=== PATIENT | male | born 1970 | race African-American/Black ===

== ENCOUNTER 2018-05-26 02:31 | Inpatient (IN) ==
[~2018-05-26 02:31] MED LIST: ceFAZolin 2 GM Premix Inj 2 GM/50 ML PIGGYBACK IV.SIG ONE
[2018-05-26] MEDS ORDERED: Diphtheria/Tetanus/Pertussis Vaccine Inj 0.5 ML Syringe IM ONE (02:37)
[2018-05-26] MEDS ORDERED: ceFAZolin 2 GM IV; once IV.SIG ONE (03:00)
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
[2018-05-26 03:19] LABS: Activated Partial Thrombo Time 23.2 sec (23.4-31.7); INR 1.1 Ratio
[2018-05-26 03:20] LABS: Calcium 8.2 mg/dL (8.5-10.1); Carbon Dioxide 21.8 meq/L (21.0-32.0); Potassium 3.5 meq/L (3.5-5.1)
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
[2018-05-26] MEDS ORDERED: HYDROmorphone PF Inj 1 MG/ML Ampul ONE (03:32)
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
[2018-05-26 04:46] LABS: Baso # (Auto) 0.1 th/mm3 (0.0-0.2); Baso % (Auto) 0.3 % (0.0-2.0); Eos % (Auto) 0.2 % (0.0-4.0); Hematocrit 42.2 % (39.0-51.0); Hemoglobin 13.9 gm/dL (13.0-17.0); Lymph # (Auto) 2.1 th/mm3 (1.0-4.8); Lymph % (Auto) 11.4 % (9.0-44.0); Mean Corpuscular HGB Conc 32.9 % (32.0-36.0); Mean Corpuscular Hemoglobin 30.1 pg (27.0-34.0); Mean Corpuscular Volume 91.7 fL (80.0-100.0); Mean Platelet Volume 7.5 fL (7.0-11.0); Mono # (Auto) 1.8 th/mm3 (0.0-0.9); Mono % (Auto) 9.6 % (0.0-8.0); Neut # (Auto) 14.4 th/mm3 (1.8-7.7); Neut % (Auto) 78.5 % (16.0-70.0); Platelet Count 277 th/mm3 (150-450); Red Cell Distribution Width 14.1 % (11.6-17.2); White Blood Count 18.3 th/mm3 (4.0-11.0)
[2018-05-26 05:21] LABS: Eosinophils 1 % (0-4); Lymphocytes 15 % (9-44); Monocytes 12 % (0-8); Myelocytes 2 % (0-0)
[2018-05-26 05:22] LABS: Platelet Estimate Normal (Normal); Platelet Morphology Normal (Normal); Toxic Vacuolation Present
[2018-05-26] MEDS ORDERED: Potassium Chlor 20 mEq Premix 20 MEQ/100 ML PIGGYBACK IV.SIG PRN ×2 (06:52)
[2018-05-26] MEDS ORDERED: Potassium Chlor 40 mEq Premix 40 MEQ/100 ML PIGGYBACK IV.SIG PRN ×2 (06:52)
[2018-05-26] MEDS ORDERED: Potassium Chloride Liq 20 MEQ/15 ML UDC PO PRN ×2 (06:52)
[2018-05-26] MEDS ORDERED: Sodium Phosphate Inj 30 MMOL in Sodium Chlor 0.9% Inj 250 ML IV.SIG PRN (06:52)
[2018-05-26] MEDS ORDERED: Potassium Phosphate Inj 30 MMOL in Sodium Chlor 0.9% Inj 250 ML IV.SIG PRN (06:52)
[2018-05-26] MEDS ORDERED: Magnesium Oxide 400 MG Tablet PO PRN (06:52)
[2018-05-26] MEDS ORDERED: Magnesium Sulfate Inj 4 GM in Sodium Chlor 0.9% Inj 92 ML IV.SIG PRN (06:52)
[2018-05-26] MEDS ORDERED: Magnesium Sulfate Inj 2 GM in Sodium Chlor 0.9% Inj 96 ML IV.SIG PRN (06:52)
[2018-05-26] MEDS ORDERED: Potassium Phosphate 500 MG Soluble Tablet PO PRN ×2 (06:52)
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
[2018-05-26] MEDS ORDERED: Lidocaine PF 1% Inj 5 ML Syringe OTHER ONE (07:36)
[2018-05-26] MEDS ORDERED: Glycopyrrolate Inj 1 MG/5 ML Syringe IV.PUSH ONE (07:36)
[2018-05-26] MEDS ORDERED: Normosol-R pH 7.4 Inj 2,000 ML IV.CONT ONE (07:36)
[2018-05-26] MEDS ORDERED: Neostigmine Inj 5 MG/5 ML Syringe IV.PUSH ONE (07:36)
[2018-05-26] MEDS ORDERED: Ketorolac Inj 30 MG/ML (IVP) Vial IV.PUSH ONE (07:36)
[2018-05-26] MEDS ORDERED: Phenylephrine/NS 1000 MCG/10ML Syringe IV.PUSH ONE (07:36)
[2018-05-26] MEDS: Lidocaine 5% Patch T-DERMAL SCH (08:02)
[2018-05-26] MEDS: Methocarbamol 500 MG Tablet PO SCH ×3 (08:02→22:21)
[2018-05-26] MEDS: Pantoprazole Inj 40 MG Vial IV.PUSH SCH ×2 (08:02→11:56)
[2018-05-26] MEDS: Docusate Sodium 100 MG Capsule PO SCH ×2 (08:02→22:21)
[2018-05-26] MEDS: Sod Chloride 0.9% Inj 1,000 ML IV.CONT SCH (08:02)
[2018-05-26] MEDS ORDERED: Post-op Orders (for Pharmacy) OTHER STA (09:29)
--- NOTE | 2018-05-26 09:42 | P.OP ---
- Preoperative Diagnosis (1) Open fracture of right tibia and fibula (2) Laceration of left lower leg with foreign body (3) Bimalleolar fracture of right ankle Date of procedure: 05/26/18 Procedure: Irrigation and debridement of open right tibia fracture, irrigation debridement of open right fibula fracture, intramedullary nail fixation right tibia fracture , open reduction internal fixation bimalleolar right ankle fracture, stress exam of syndesmosis under anesthesia, application of wound VAC dressing, irrigation and debridement of left thigh complex laceration with closure of 10 cm laceration Anesthesia: GETA Surgeon: Leon Lange MD Assistant Chief Train Dispatcher: KARLY Cano PA-C The surgical procedure was assisted by my physician review assistant. My P.A. presence was necessary throughout this case for the manipulation and positioning of the surgical extremity. My P.A. was assisting me throughout the duration of this procedure. The skill set of a physician review assistant was medically necessary to complete this procedure. During the surgical case the rn surgical was working at the back table and the physician review assistant was directly assisting me. Operation and Findings: Implants: ITS [10]mm x [360]mm tibial nail Plan of activity: Nonweightbearing Patient was seen and examined preoperatively. He was found to have open right tibia and fibula fractures as well as complex laceration to left knee. An informed consent was obtained from patient after detailed discussion of risk and benefits. Risks of surgery include bleeding, infection, painful hardware, nonunion, malunion, leg length discrepancy, need for hardware removal, wound infection, and medical complications associated with anesthesia including blood clots, stroke, heart attack, and were discussed. Operative site was marked. Patient was brought to the operating room placed on or table. Patient received IV antibiotics and was given IV sedation GETA. Bilateral lower extremities were prepped with alcohol Hibiclens and draped in usual sterile fashion. Timeout procedure was performed Procedure began with attention turned towards the right tibia fracture. The tibia fracture was exposed through the traumatic laceration. An excisional debridement was performed. Curettes and rongeurs were used to debride soft tissue and bone. Areas of muscle and fascia were debrided with scalpel. Overall the wound was relatively clean. After completion of debridement, the wound was thoroughly irrigated with pulsatile lavage. Next attention was turned towards fixation of the right tibia fracture. The fracture was manually reduced. Traction was applied. Fracture was reduced. The fracture reduced and excellent alignment was achieved. Fracture clamp was used to aid in reduction. Next a 3 cm incision was made proximal to the patella. Quadriceps tendon was split in line with fibers. Cannulas were placed in the patellofemoral joint to protect the articular surface at all times. A guidepin was placed into the tibia and advanced in the tibial canal. Fluoroscopy was used to confirm appropriate guidepin placement. An opening reamer was used to open the tibial canal. A ball-tipped guidewire was advanced down the tibial canal. Guidepin was passed across the fracture site into the center of the distal tibia. Fluoroscopy confirmed guidepin placement. The nail length was now measured. The fracture was now held in a reduced position and the canal was reamed. The canal was reamed up to appropriate size. A 10 mm tibia nail was now selected. Next the nail was fully seated. Using perfect mil[place]acs technique 3 distal interlocking screws were placed. The nail was now back slapped to apply compression across the fracture site. Using the insertion handle as a guide 2 proximal interlocking screws were placed. Fluoroscopy confirmed excellent of fracture with well-placed hardware. Incisions and the knee joint were thoroughly irrigated with sterile saline. Next, attention was turned to the right fibula. There was a displaced distal fibular shaft fracture. There was a small laceration over the fibula. This wound was explored. The fibula fracture was found to be an open fracture as well. The traumatic laceration was extended proximally distally. The bone was exposed. An excisional debridement was performed. Curettes and rongeur were used to debride soft tissue and bone. The wound was now thoroughly irrigated with pulsatile lavage. Next this was turned towards excision of the fibula fracture. A 1 cm incision was made distal to the tip of the fibula. A 3.5 mm drill bit was placed in the tip of the fibula and advanced in a retrograde fashion up the fibular canal. A Harris rene pin was now selected of appropriate length. The fracture was held in reduced position. The Harris rene was placed up the intramedullary canal of the fibula across the fracture site. Fluoroscopy confirmed appropriate hardware placement. The fracture was next alignment. Next, attention was turned towards the medial malleolus. The medial malleolus fragment was minimally displaced. A small percutaneous incision was made distal to the medial malleolus. A guidepin for the cannulated screws was now placed in a retrograde fashion across the fracture site. Screw length was measured. Cannulated drill was placed over the guidepin. Appropriate length screw was now placed. Good compression was applied. The syndesmosis was now visualized under fluoroscopy. The syndesmosis was stressed. There was no widening of the syndesmosis was external rotation or eversion of the foot. At this point the traumatic lacerations of the right leg were closed with 3-0 PDS and 3-0 nylon. The skin over the traumatic laceration of the tibia fracture appeared to be viable. The skin did have significant traumatic injury. Decision was made to place a wound VAC dressing over the incision. The incision was covered with Xeroform. VAC dressing was now sealed appropriately. The incisions near the patella were closed with #1 Vicryl, 3-0 Vicryl, and dmitry. Next attention was turned towards the left leg. Patient had a 10 cm laceration over the posterior medial aspect of the left knee. The laceration was stellate in nature. There were a few small foreign bodies present. An excisional debridement was performed. Pulsatile lavage was used to thoroughly irrigate the wound. At this point attention was turned to wound closure. Subcutaneous tissue was reapproximated with 3-0 PDS. Skin was now closed with 3-0 nylon. A combination of vertical mattress, horizontal mattress, and retention sutures were utilized. The laceration was completely closed. Sterile dressings were now applied. The right leg was placed into a well molded splint. He was transferred to recovery room in stable condition.
[2018-05-26] MEDS ORDERED: ceFAZolin Inj 2,000 MG in Sodium Chlor 0.9% Inj 80 ML IV.SIG SCH (10:00)
--- NOTE | 2018-05-26 10:54 | P.PNOP ---
Subjective Interval history: POD 0 s/p I&D with IMN right tibia, ORIF right medial malleolus, ORIF right fibula, I&D wound closure left thigh stable in pacu Physical Exam Vital signs: Vital Signs 05/26/18 03:14 05/26/18 03:52 05/26/18 03:53 Temperature Pulse Rate 103 H Respiratory Rate 16 20 Blood Pressure 124/65 Pulse Oximetry 98 05/26/18 04:00 05/26/18 04:15 05/26/18 04:37 Temperature 98.6 F Pulse Rate 109 H 104 H Respiratory Rate 15 24 23 Blood Pressure 114/60 108/63 Pulse Oximetry 99 95 05/26/18 04:52 05/26/18 05:00 05/26/18 05:07 Temperature Pulse Rate 105 H 117 H 108 H Respiratory Rate 20 19 31 H Blood Pressure 105/62 105/62 110/62 Pulse Oximetry 98 98 05/26/18 05:22 05/26/18 05:52 05/26/18 06:00 Temperature Pulse Rate 102 H 102 H Respiratory Rate 15 23 Blood Pressure 113/64 111/66 Pulse Oximetry 100 98 99 05/26/18 07:15 Temperature Pulse Rate 106 H Respiratory Rate 16 Blood Pressure 111/63 Pulse Oximetry 97 Intake & Output 05/25/18 05/26/18 05/26/18 18:59 06:59 18:59 Intake Total 50 / 50 1999 Output Total 400 / 400 150 / 150 Balance -350 / -350 1850 / 1850 Weight 99.8 kg Intake: IV 50 / 50 Ancef 2 GM Premix Inj 2 gm In 50 / 50 50 ml @ 100 mls/hr IV.SIG ONCE ONE Rx#:[id number] Anesthesia Amount 1999 Output: Estimated Blood Loss 150 / 150 Urine Amount (Catheter) 400 / 400 Indwelling Urethral Catheter 400 / 400 Other: # Bowel Movements 0 Weight On Admission 99.8 kg Narrative: RLE: +short leg splint. intact. nvi. +vac. good seal LLE: dressings clean and dry .intact. nvi - Urinary Catheter Management Indwelling Urethral Catheter Cath placed during this visit: yes Reason for continuing: Hourly intake/output Insertion date: 05/26/18 Insertion time: 04:30 Results - Labs CBC & Chem 7: 05/26/18 04:29 05/26/18 02:38 Laboratory Results - last 24 hr 05/26/18 05/26/18 05/26/18 02:38 02:38 02:50 WBC RBC Hgb POC Hgb (Calc) 14.6 Hct POC Hct 43.0 MCV MCH MCHC RDW Plt Count MPV Prelim Diff (Auto) Neut % (Auto) Lymph % (Auto) [facility] % (Auto) Eos % (Auto) Baso % (Auto) Neut # (Auto) Lymph # (Auto) [facility] # (Auto) Eos # (Auto) Baso # (Auto) WBC Differential Seg Neuts % (Manual) Band Neuts % (Manual) Lymphocytes % (Manual) Monocytes % (Manual) Eosinophils % (Manual) Myelocytes % (Man) Abs Neuts (Manual) Differential Comment Toxic Vacuolation Platelet Estimate Platelet Morphology PT 11.0 INR 1.1 APTT 23.2 L POC Sodium 142 Sodium 140 POC Potassium 3.5 L Potassium 3.5 POC Chloride 102 Chloride 107 Carbon Dioxide 21.8 Anion Gap 11 POC BUN 13 BUN 12 Creatinine 1.41 H POC Creatinine 1.3 Estimated GFR 52 L POC Glucose 186 H Random Glucose 193 H Calcium 8.2 L Blood Type AB Positive Blood Type Recheck Required Antibody Screen Negative 05/26/18 04:29 WBC 18.3 H RBC 4.60 Hgb 13.9 POC Hgb (Calc) Hct 42.2 POC Hct MCV 91.7 MCH 30.1 MCHC 32.9 RDW 14.1 Plt Count 277 MPV 7.5 Prelim Diff (Auto) Slide review pending Neut % (Auto) 78.5 H Lymph % (Auto) 11.4 [facility] % (Auto) 9.6 H Eos % (Auto) 0.2 Baso % (Auto) 0.3 Neut # (Auto) 14.4 H Lymph # (Auto) 2.1 [facility] # (Auto) 1.8 H Eos # (Auto) 0.0 Baso # (Auto) 0.1 WBC Differential Manual diff final Seg Neuts % (Manual) 64 Band Neuts % (Manual) 6 Lymphocytes % (Manual) 15 Monocytes % (Manual) 12 H Eosinophils % (Manual) 1 Myelocytes % (Man) 2 H Abs Neuts (Manual) 13.2 H Differential Comment . Toxic Vacuolation Present H Platelet Estimate Normal Platelet Morphology Normal PT INR APTT POC Sodium Sodium POC Potassium Potassium POC Chloride Chloride Carbon Dioxide Anion Gap POC BUN BUN Creatinine POC Creatinine Estimated GFR POC Glucose Random Glucose Calcium Blood Type Blood Type Recheck Antibody Screen - Imaging Impressions Chest X-Ray 05/26/18 02:32 CONCLUSION: The lungs are clear. Pelvis X-Ray 05/26/18 02:32 CONCLUSION: No fracture. Knee X-Ray 05/26/18 02:34 CONCLUSION: No gross fracture on this limited view. Medial soft tissue defect. Tibia/Fibula X-Ray 05/26/18 02:34 CONCLUSION: Fractures as detailed above. Abdomen/Pelvis CT 05/26/18 02:40 CONCLUSION: 1. No acute abnormality. Cervical Spine CT 05/26/18 02:40 CONCLUSION: 1. No fracture or dislocation. Chest CT 05/26/18 02:40 CONCLUSION: 1. Acute fracture involving the manubrium as well as multiple right-sided rib fractures with a small retrosternal hematoma. No extravasation of contrast to suggest an arterial injury. 2. Either pulmonary contusion or atelectasis involving the anterior right lung. Head CT 05/26/18 02:40 CONCLUSION: 1. This study is motion degraded. 2. Right temporal soft tissue swelling. 3. No gross intracranial abnormality. . . Ankle CT 05/26/18 03:21 CONCLUSION: 1. Fractures involving the distal tibia, distal fibula, and talus as detailed above. 2. Soft tissue defect with underlying edema and hematoma as well as subcutaneous air. The foreign bodies are fairly superficial within the wound. Knee CT 05/26/18 03:21 CONCLUSION: 1. Soft tissue defect involving the medial knee without radiopaque foreign body. Lower Extremity CT 05/26/18 03:21 CONCLUSION: 1. See the CT of the ankle and CT of the knee reported separately. 2. Proximal lower leg is intact. Assessment and Plan - Assessment and Plan 1) Right Open Tibia/Fibula Fxs and left thigh wound s/p I&D with IMN right tibia , ORIF right medial malleolus, ORIF right fibula, I&D wound closure left thigh - POD0 -NWB -maintain splint -maintain incisional vac. intermittent, 125mmg, 3:1 -will plan for removal of incisional vac on tuesday by juan team -ortho surgeries complete at this time -begin daily dressing changes left thigh with xeroform/4x4/ALLY on POD 2 -will follow up with Juan or GIULIANO in 2 weeks
[2018-05-26] MEDS ORDERED: fentaNYL Citrate Inj 100 MCG/2 ML Ampul ONE ×2 (11:04)
--- NOTE | 2018-05-26 11:26 | ECG ---
Date Performed: 05/26/2018 Time Performed: 05:48:20 PTAGE: 47 years EKG: Sinus rhythm . Left axis deviation RBBB with left anterior fascicular block Abnormal ECG NO PREVIOUS TRACING DOCTOR: Rachid Henriquez Interpretating Date/Time 05/26/2018 11:25:40
[2018-05-26] MEDS ORDERED: *morphine SULFATE 4 MG/ML PERIprocedure ONLY ONE (12:13)
[2018-05-26] MEDS ORDERED: MORPHINE SULFATE IV.PUSH ONE (12:43)
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
--- NOTE | 2018-05-26 12:55 | OTSOAPIP ---
RECEIVED OCCUPATIONAL THERAPY ORDERS. PATIENT IS OFF FLOOR FOR SURGERY. WILL REATTEMPT LATER ABLE OR NEXT DAY. Therapist: Mago Hernandez, OTR/L Signature on file
[2018-05-26] MEDS: Morphine Sulfate Inj 2 MG/ML Vial IV.PUSH PRN ×2 (14:39→23:49)
[2018-05-26] MEDS: Gentamicin/NS 80 mg Premix 100 ML IV.SIG SCH (17:26)
[2018-05-26] MEDS: ceFAZolin 2 GM Premix Inj 2 GM/50 ML PIGGYBACK IV.SIG SCH ×2 (17:29→23:49)
--- NOTE | 2018-05-26 20:23 | XR ---
EXAM DATE: 05/26/2018 8:20 PM EST AGE/SEX: 47 years / Male INDICATIONS: ORIF right tibia fracture. CLINICAL DATA: This is the patient's subsequent encounter. Patient reports that signs and symptoms h ave been present for 1 day and indicates a pain score of Nonresponsive. MEDICAL/SURGICAL HISTORY: Non-responsive. Non-responsive. COMPARISON: [facility] – [place], [place] ANKLE RIGHT W/O CONTRAST, 05/26/2018. . FINDINGS: Multiple fluoroscopic images demonstrate intramedullary rene fixation of the tibia with compression sc rew in the medial malleolus. There is also cerclage wire fixation of the fibula. There is near-anatom ic alignment of the fracture fragments. Hardware appears well-positioned. CONCLUSION: 1. Right tibial ORIF, as above. Electronically signed by: Navneet Hutchins MD Board Certified Radiologist 05/26/2018 8:22 PM EST
[2018-05-26] MEDS ORDERED: Senna/Docusate Sodium 8.6/50 MG Tablet PO SCH (21:00)
[2018-05-27] MEDS: Gentamicin/NS 80 mg Premix 100 ML IV.SIG SCH ×4 (00:49→20:21)
[2018-05-27] MEDS ORDERED: Chlorhexidine Gluconate 2% 1 Pack (2 Cloths) TOPICAL PRN (04:00)
[2018-05-27] MEDS: Sod Chloride 0.9% Inj 1,000 ML IV.CONT SCH (05:13)
[2018-05-27 05:18] LABS: Baso % (Auto) 0.2 % (0.0-2.0); Hematocrit 29.8 % (39.0-51.0); Hemoglobin 10.2 gm/dL (13.0-17.0); Lymph # (Auto) 1.7 th/mm3 (1.0-4.8); Lymph % (Auto) 17.9 % (9.0-44.0); Mean Corpuscular HGB Conc 34.4 % (32.0-36.0); Mean Corpuscular Hemoglobin 30.5 pg (27.0-34.0); Mean Corpuscular Volume 88.8 fL (80.0-100.0); Mean Platelet Volume 7.4 fL (7.0-11.0); Mono # (Auto) 1.5 th/mm3 (0.0-0.9); Mono % (Auto) 16.3 % (0.0-8.0); Neut # (Auto) 6.1 th/mm3 (1.8-7.7); Neut % (Auto) 65.6 % (16.0-70.0); Platelet Count 190 th/mm3 (150-450); Red Blood Count 3.35 mil/mm3 (4.50-5.90); Red Cell Distribution Width 14.5 % (11.6-17.2); White Blood Count 9.3 th/mm3 (4.0-11.0)
[2018-05-27] MEDS: Methocarbamol 500 MG Tablet PO SCH ×3 (05:23→23:19)
--- NOTE | 2018-05-27 05:27 | XR ---
EXAM DATE: 05/27/2018 5:00 AM EST AGE/SEX: 47 years / Male INDICATIONS: Shortness of breath. CLINICAL DATA: This is the patient's subsequent encounter. Patient reports that signs and symptoms h ave been present for 2 days and indicates a pain score of Nonresponsive. MEDICAL/SURGICAL HISTORY: Non-responsive. Non-responsive. [place] [facility] [place]. . FINDINGS: A single AP view of the chest demonstrates the lungs to be symmetrically aerated without evidence of mass, infiltrate or effusion. Minimal right midlung atelectasis. The cardiomediastinal contours are u nremarkable. Right-sided rib fractures.. CONCLUSION: Minimal right midlung atelectasis. Electronically signed by: Levar Yan MD Board Certified Radiologist 05/27/2018 5:26 AM EST
[2018-05-27 05:48] LABS: Albumin 2.6 g/dL (3.4-5.0); Anion Gap 8 meq/L (5-15); Aspartate Aminotransferase 206 U/L (15-37); Blood Urea Nitrogen 13 mg/dL (7-18); Calcium 7.9 mg/dL (8.5-10.1); Chloride 105 meq/L (98-107); Glomerular Filtration Rate 82 mL/min (>89); Glucose,Random 131 mg/dL (74-106); Potassium 4.3 meq/L (3.5-5.1); Sodium 140 meq/L (136-145)
[2018-05-27 05:49] LABS: Alanine Aminotransferase 99 U/L (12-78)
[2018-05-27 06:14] LABS: Alkaline Phosphatase 41 U/L (45-117); Creatine Kinase 10194 U/L (39-308); Total Protein 6.5 g/dL (6.4-8.2)
[2018-05-27 06:33] LABS: CKMB Percent 0.4 % (0.0-4.0); Creatine Kinase MB 39.2 ng/mL (0.5-3.6)
[2018-05-27] MEDS: Chlorhexidine Gluconate 2% 1 Pack (2 Cloths) TOPICAL SCH (06:51)
--- NOTE | 2018-05-27 07:20 | P.PNOP ---
Subjective Interval history: Resting comfortably. States his pain is relatively well controlled. Physical Exam Vital signs: Vital Signs 05/26/18 10:57 05/26/18 11:00 05/26/18 11:15 Temperature 97.9 F Pulse Rate 82 80 75 Respiratory Rate 17 18 20 Blood Pressure 119/66 121/64 124/63 Pulse Oximetry 95 94 L 100 05/26/18 11:20 05/26/18 11:30 05/26/18 11:45 Temperature Pulse Rate 68 75 Respiratory Rate 17 15 16 Blood Pressure 133/64 131/64 Pulse Oximetry 100 100 05/26/18 12:00 05/26/18 12:30 05/26/18 13:00 Temperature 98.3 F 98.5 F Pulse Rate 73 78 77 Respiratory Rate 17 18 16 Blood Pressure 134/62 127/63 137/61 Pulse Oximetry 100 100 98 05/26/18 16:15 05/26/18 17:00 05/26/18 20:00 Temperature 98.7 F 98.2 F Pulse Rate 109 H 101 H 94 H Respiratory Rate 16 14 16 Blood Pressure 119/62 129/66 Pulse Oximetry 98 98 05/26/18 21:11 05/26/18 23:29 05/27/18 02:37 Temperature 98.4 F Pulse Rate 61 107 H 108 H Respiratory Rate 16 16 17 Blood Pressure 126/66 Pulse Oximetry 94 L 98 95 05/27/18 04:17 Temperature 99.0 F Pulse Rate 108 H Respiratory Rate 16 Blood Pressure 125/82 Pulse Oximetry 96 Intake & Output 05/26/18 05/27/18 05/27/18 18:59 06:59 18:59 Intake Total 2150 / 2150 1300 / 1300 Output Total 1100 / 1100 600 / 600 Balance 1050 / 1050 700 / 700 Weight 112.1 kg Intake: IV 150 / 150 1150 / 1150 LR 1000 mL Inj 1,000 ML @ 100 1000 / 1000 mls/hr IV.CONT .Q10H [facility] Rx#: [id number] Gentamicin/NS 80 mg Premix 100 100 / 100 100 / 100 ML @ 200 mls/hr IV.SIG Q8H [facility] Rx#:[id number] Ancef 2 GM Premix Inj 2 gm In 50 / 50 50 / 50 50 ml @ 100 mls/hr IV.SIG Q8H [facility] Rx#:[id number] Oral 150 / 150 Anesthesia Amount 1999 Output: Urine 350 / 350 Estimated Blood Loss 150 / 150 Urine Amount (Catheter) 600 / 600 600 / 600 Indwelling Urethral Catheter 600 / 600 600 / 600 Other: Mode Setting Right Leg Continuous Narrative: RLE: +short leg splint. intact. nvi. +vac. good seal LLE: dressings clean and dry .intact. nvi - Urinary Catheter Management Indwelling Urethral Catheter Cath placed during this visit: yes Reason for continuing: Hourly intake/output Insertion date: 05/26/18 Insertion time: 04:30 Results - Labs CBC & Chem 7: 05/27/18 04:59 05/27/18 04:59 Laboratory Results - last 24 hr 05/26/18 05/27/18 05/27/18 06:05 04:59 04:59 WBC 9.3 RBC 3.35 L Hgb 10.2 L D Hct 29.8 L MCV 88.8 MCH 30.5 MCHC 34.4 RDW 14.5 Plt Count 190 D MPV 7.4 Neut % (Auto) 65.6 Lymph % (Auto) 17.9 [facility] % (Auto) 16.3 H Eos % (Auto) 0.0 Baso % (Auto) 0.2 Neut # (Auto) 6.1 Lymph # (Auto) 1.7 [facility] # (Auto) 1.5 H Eos # (Auto) 0.0 Baso # (Auto) 0.0 WBC Differential . Differential Comment Auto diff final Sodium 140 Potassium 4.3 D Chloride 105 Carbon Dioxide 27.0 Anion Gap 8 BUN 13 Creatinine 1.15 Estimated GFR 82 L Random Glucose 131 H Calcium 7.9 L Total Bilirubin 0.4 AST 206 H ALT 99 H Alkaline Phosphatase 41 L Total Creatine Kinase 17374 H CK-MB (CK-2) 39.2 H CK-MB (CK-2) % 0.4 Total Protein 6.5 Albumin 2.6 L Nasal Screen MRSA (PCR) Not detected - Imaging Impressions Tibia/Fibula X-Ray 05/26/18 00:00 CONCLUSION: 1. Right tibial ORIF, as above. Chest X-Ray 05/27/18 06:00 CONCLUSION: Minimal right midlung atelectasis. Assessment and Plan - Assessment and Plan 1) Right Open Tibia/Fibula Fxs and left thigh wound s/p I&D with IMN right tibia , ORIF right medial malleolus, ORIF right fibula, I&D wound closure left thigh - POD1 -NWB -maintain splint -maintain incisional vac. intermittent, 125mmg, 3:1 -will plan for removal of incisional vac on tuesday by juan team -ortho surgeries complete at this time -begin daily dressing changes left thigh with xeroform/4x4/ALLY on POD 2 -will follow up with Juan or GIULIANO in 2 weeks
[2018-05-27] MEDS: Lidocaine 5% Patch T-DERMAL SCH (08:14)
[2018-05-27] MEDS: Senna/Docusate Sodium 8.6/50 MG Tablet PO SCH ×2 (08:14→23:17)
[2018-05-27] MEDS: ceFAZolin 2 GM Premix Inj 2 GM/50 ML PIGGYBACK IV.SIG SCH ×3 (08:30→23:20)
[2018-05-27] MEDS ORDERED: Enoxaparin Inj 30 MG/0.3 ML Syringe SQ SCH (10:00)
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
--- NOTE | 2018-05-27 13:24 | CT ---
EXAM DATE: 05/27/2018 1:15 PM EST AGE/SEX: 47 years / Male INDICATIONS: Altered mental status. CLINICAL DATA: This is the patient's initial encounter. Patient reports that signs and symptoms have been present for 1 day and indicates a pain score of 3/10. MEDICAL/SURGICAL HISTORY: . 0 . 0 RADIATION DOSE: 38.24 CTDI (mGy) [place] [facility] [place]. . TECHNIQUE: CT of the head without contrast. Using automated exposure control and adjustment of the mA and/or kV according to patient size, radiation dose was kept as low as reasonably achievable to ob tain optimal diagnostic quality images. DICOM format image data is available electronically for revi ew and comparison. FINDINGS: There is evidence of new hypodensity of the right cerebral hemisphere involving the distribution of t he posterior division of the MCA indicating acute infarct. There is associated effacement of sulci. T here is loss of soriano matter-white matter differentiation. No evidence of midline shift. No evidence o f acute hemorrhage. No intracranial mass lesion. CONCLUSION: 1. New finding of acute infarct in the distribution of the posterior division of the right MCA. Ther e is associated effacement of sulci and mild mass effect but no midline shift. 2. Findings were discussed with patient's nurse. . . Electronically signed by: Sai Arugeta MD Board Certified Radiologist 05/27/2018 1:23 PM EST
--- NOTE | 2018-05-27 14:02 | P.PNCC ---
Subjective 24 Hour Review/Hospital Course: 05/27/18 Patient post R tib/fib fx. CT head consistent with R MCA ischemic stroke. CTA of the head reveals large right hemispheric stroke in the distribution of MCA and CT of the neck reveals carotid artery occlusion. Stroke alert initiated and appropriate services consulted. Transfer patient to ICU. Neurologic exam Patient is awake alert but somewhat disoriented able to speak Pupils equal reactive extraocular muscles are intact Motorically patient is weaker on the left side but 3/5 and 5/5 on the right side Sensory preserved All consistent with a large right MCA distribution ischemic stroke with a right internal carotid artery occlusion extending into the middle cerebral artery Patient was adequately resuscitated at the line placed started on IV heparin Neurology and medical critical care consults are greatly appreciated Discussed with Dr. Worthington and will take patient to interventional radiology suite for immediate extraction of the clot and possible stenting of the internal carotid artery depending on the findings post removal of the clot. This patient will probably have progression of neurologic symptoms and he will likely get worse before he improves Final neurologic status remains elusive Objective Vital Signs / I&O: Vital Signs 05/26/18 16:15 05/26/18 17:00 05/26/18 20:00 Temperature 98.7 F 98.2 F Pulse Rate 109 H 101 H 94 H Respiratory Rate 16 14 16 Blood Pressure 119/62 129/66 Pulse Oximetry 98 98 05/26/18 21:11 05/26/18 23:29 05/27/18 02:37 Temperature 98.4 F Pulse Rate 61 107 H 108 H Respiratory Rate 16 16 17 Blood Pressure 126/66 Pulse Oximetry 94 L 98 95 05/27/18 04:00 05/27/18 04:17 05/27/18 08:00 Temperature 99.0 F 99.8 F H Pulse Rate 108 H 118 H Respiratory Rate 16 16 16 Blood Pressure 125/82 153/78 H Pulse Oximetry 96 92 L 05/27/18 09:00 05/27/18 12:00 Temperature 97.1 F L Pulse Rate 104 H 101 H Respiratory Rate 14 18 Blood Pressure 159/81 H Pulse Oximetry 96 Intake & Output 05/26/18 05/27/18 05/27/18 18:59 06:59 18:59 Intake Total 2150 / 2150 1300 / 1300 150 / 150 Output Total 1100 / 1100 600 / 600 Balance 1050 / 1050 700 / 700 150 / 150 Weight 112.1 kg Intake: IV 150 / 150 1150 / 1150 150 / 150 LR 1000 mL Inj 1,000 ML @ 100 1000 / 1000 mls/hr IV.CONT .Q10H [facility] Rx#: [id number] Gentamicin/NS 80 mg Premix 100 100 / 100 100 / 100 100 / 100 ML @ 200 mls/hr IV.SIG Q8H [facility] Rx#:[id number] Ancef 2 GM Premix Inj 2 gm In 50 / 50 50 / 50 50 / 50 50 ml @ 100 mls/hr IV.SIG Q8H [facility] Rx#:[id number] Oral 150 / 150 Anesthesia Amount 1999 Output: Urine 350 / 350 Estimated Blood Loss 150 / 150 Urine Amount (Catheter) 600 / 600 600 / 600 Indwelling Urethral Catheter 600 / 600 600 / 600 Other: Mode Setting Right Leg Continuous Continuous Date of Last Bowel Movement 05/25/18 Result Diagrams: 05/27/18 04:59 05/27/18 04:59 Imaging: Impressions Tibia/Fibula X-Ray 05/26/18 00:00 CONCLUSION: 1. Right tibial ORIF, as above. Head CT 05/27/18 00:00 CONCLUSION: 1. New finding of acute infarct in the distribution of the posterior division of the right MCA. There is associated effacement of sulci and mild mass effect but no midline shift. 2. Findings were discussed with patient's nurse. . . Chest X-Ray 05/27/18 06:00 CONCLUSION: Minimal right midlung atelectasis. Disinhibition Score: 14.00 Aggression Score: 14.00 Lability Score: 14.00 Agitated Behavior Total Score: 14
--- NOTE | 2018-05-27 14:34 | CT ---
EXAM DATE: 05/27/2018 2:29 PM EST AGE/SEX: 47 years / Male INDICATIONS: Stroke alert. CLINICAL DATA: This is the patient's initial encounter. Patient reports that signs and symptoms have been present for 1 day and indicates a pain score of 0/10. MEDICAL/SURGICAL HISTORY: . 0 . 0 RADIATION DOSE: 314.22 CTDI (mGy) [place] [facility] [place]. . TECHNIQUE: CT of the head after intravenous administration of 100 ml Visipaque 320 (iodixanol) gilmar onic water-soluble contrast as a cumulative dose for multiple exams. Using automated exposure contro l and adjustment of the mA and/or kV according to patient size, radiation dose was kept as low as colton sonably achievable to obtain optimal diagnostic quality images. DICOM format image data is available electronically for review and comparison. FINDINGS: 1. CBF (<30%) Volume (ml): 80 2. Perfusion (Tmax>6.0s) Volume (ml): 107 3. Mismatch Volume (ml) (Tmax>6.0 - CBF): 27 CONCLUSION: Physiological brain perfusion parameters with RAPID analysis as above. The decision for consideration of therapy is multi factorial and multi disciplinary relying on subjec tive and objective clinical data. This data is not construed or intended to be the sole determinant of treatment eligibility. Electronically signed by: Sai Argueta MD Board Certified Radiologist 05/27/2018 2:32 PM EST
--- NOTE | 2018-05-27 14:47 | CT ---
EXAM DATE: 05/27/2018 2:33 PM EST AGE/SEX: 47 years / Male INDICATIONS: Stroke alert. CLINICAL DATA: This is the patient's initial encounter. Patient reports that signs and symptoms have been present for 1 day and indicates a pain score of 0/10. MEDICAL/SURGICAL HISTORY: . 0 . 0 RADIATION DOSE: 30.38 CTDI (mGy) COMPARISON: No prior exams available for comparison. TECHNIQUE: Volumetric scanning was performed using a multi-row detector CT scanner during bolus infu lionel of 100 ml Visipaque 320 (iodixanol) nonionic water-soluble contrast as a cumulative dose for mu ltiple exams. The data was post processed with a variety of visualization algorithms including full volume maximum intensity projection, multi-planar sliding thin slab reformation, curved planar refor mation, and surface rendering techniques. Using automated exposure control and adjustment of the mA and/or kV according to patient size, radiation dose was kept as low as reasonably achievable to obtai n optimal diagnostic quality images. DICOM format image data is available electronically for review and comparison. FINDINGS: There are multiple areas of filling defects within the right internal carotid artery in the neck. The re is occlusion of the proximal posterior branch of the right MCA. There is also decreased filling of branches to the frontal lobe on the right. The anterior cerebral arteries left middle cerebral arter y and posterior cerebral arteries are widely patent. Left internal carotid artery is widely patent. B asilar artery is widely patent. CONCLUSION: 1. Multiple areas of thrombus in the right internal carotid artery suspicious for carotid artery dis section with this clinical history. 2. Occlusion of posterior division MCA on the right. Decreased filling of MCA branches in the right frontal lobe as well. Report was called by Dr. Argueta to Dr. Tinajero at 1440 . Electronically signed by: Sai Argueta MD Board Certified Radiologist 05/27/2018 2:45 PM EST
--- NOTE | 2018-05-27 14:50 | CT ---
EXAM DATE: 05/27/2018 2:41 PM EST AGE/SEX: 47 years / Male INDICATIONS: Stroke alert. Slurred speech. weakness. CLINICAL DATA: This is the patient's initial encounter. Patient reports that signs and symptoms have been present for 1 day and indicates a pain score of 0/10. MEDICAL/SURGICAL HISTORY: . 0 . 0 RADIATION DOSE: 30.38 CTDI (mGy) COMPARISON: C, CTA STROKE ALERT HEAD W CONTRAST W 3D, 05/27/2018. . TECHNIQUE: Volumetric scanning was performed using a multirow detector CT scanner during bolus infus ion of 100 ml Visipaque 320 (iodixanol) nonionic water-soluble contrast as a cumulative dose for mul tiple exams. The data was postprocessed with a variety of visualization algorithms including full-v olume maximum intensity projection, multiplanar sliding thin-slab reformation, curved-planar reformat ion, and surface-rendering techniques. Using automated exposure control and adjustment of the mA and /or kV according to patient size, radiation dose was kept as low as reasonably achievable to obtain o ptimal diagnostic quality images. DICOM format image data is available electronically for review and comparison. Percent stenosis is calculated using the diameter of the stenotic region over the diameter of the nor mal distal internal carotid artery. FINDINGS: Abnormal filling defect of the right internal carotid artery just distal to its origin indicating thr ombus anteriorly resulting in approximately 50% narrowing of the artery. There is linear abnormality of the mid to distal internal carotid artery indicating dissection. Thrombus is also seen just proxim al to the intracranial portion of the ICA measuring approximately 2 cm in length.. This results in hi gh-grade narrowing of the artery at this point. More distally the right internal carotid artery is pa tent. The left-sided carotid arteries are patent. Bilateral vertebral arteries are patent. CONCLUSION: Right internal carotid artery dissection with thrombus seen just distal to the bifurcation and just p roximal to the intracranial segment. Report was called by Dr. Argueta to Dr. Tinajero at 1440.. Electronically signed by: Sai Argueta MD Board Certified Radiologist 05/27/2018 2:49 PM EST
[2018-05-27 14:51] LABS: ABG Base Excess 2.1 mmol/L (-2-2); ABG PCO2 35 mmHg (38-42); ABG PO2 215 mmHg (61-120)
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
[2018-05-27] MEDS ORDERED: Lidocaine 1% Inj 50 ML Vial ONE (15:04)
[2018-05-27] MEDS: Heparin Drip 25,000 UNIT/250 ML BAG IV.CONT PRN (15:18)
--- NOTE | 2018-05-27 15:37 | XR ---
EXAM DATE: 05/27/2018 3:28 PM EST AGE/SEX: 47 years / Male INDICATIONS: Central line placement. Stroke alert. CLINICAL DATA: This is the patient's subsequent encounter. Patient reports that signs and symptoms h ave been present for 3 days and indicates a pain score of Nonresponsive. MEDICAL/SURGICAL HISTORY: Non-responsive. Non-responsive. COMPARISON: C, CHEST 1V SINGLE AP, 05/27/2018. . FINDINGS: Single AP view the chest. Left IJ central venous catheter is in place with the tip at the level the p roximal SVC. Patchy linear opacity in the right lung indicating atelectasis. Mild medial left lung ba se atelectasis. No evidence of pneumothorax. Cardiomediastinal silhouette within normal limits. No ev idence of pleural effusion. Right lateral seventh rib fracture. CONCLUSION: 1. Left IJ central venous catheter in place. No evidence of pneumothorax. 2. Mild bilateral patchy pulmonary opacity likely representing atelectasis. Electronically signed by: Sai Argueta MD Board Certified Radiologist 05/27/2018 3:36 PM EST
[2018-05-27] MEDS ORDERED: Lidocaine PF 1% Inj 5 ML Syringe OTHER ONE (16:02)
[2018-05-27] MEDS ORDERED: Metoprolol Inj 5 MG/5 ML Vial IV.PUSH ONE (16:02)
[2018-05-27] MEDS ORDERED: Phenylephrine/NS 1000 MCG/10ML Syringe IV.PUSH ONE (16:02)
[2018-05-27] MEDS ORDERED: Esmolol Bolus Inj 100 MG/10 ML Vial IV.PUSH ONE (16:02)
[2018-05-27] MEDS ORDERED: Glycopyrrolate Inj 1 MG/5 ML Syringe IV.PUSH ONE (16:02)
[2018-05-27] MEDS ORDERED: Succinylcholine Inj 100 MG/5 ML Syringe IV.PUSH ONE (16:02)
[2018-05-27] MEDS ORDERED: Neostigmine Inj 5 MG/5 ML Syringe IV.PUSH ONE (16:02)
[2018-05-27] MEDS ORDERED: Cathflo Activase Inj 2 MG Vial I-CATHETER ONE (16:30)
--- NOTE | 2018-05-27 17:57 | P.RAD ---
Post Procedure Progress Note - Pre Procedure Diagnosis (1) Carotid artery dissection (2) Stroke due to embolism of carotid artery - Post Procedure Diagnosis (1) Carotid artery dissection (2) Stroke due to embolism of carotid artery - Procedure Information Procedure Date: 05/27/18 Supervising Radiologist: Praneeth Worthington MD Estimated blood loss (mL): 200 Anesthesia: General - Plan of Activity Patient to Unit: PACU Patient Condition: Fair See PACS Report for procedural detail/treatment. Vascular - Arterial Procedure right Carotid Procedure: Angiogram, Embolectomy (Penumbra aspiration), Stent Placement, Thrombolysis (6mg TPA) - Additional Information Findings: Thrombus/occlusion right ICA. Penumbra aspiration proximally near bifurcation and just proximal to petrous bone. Zoroastrian of flow with marked irregularity of right ICA just proximal to the petrous portion. This segment stented with 6mm x 40mm protege stent with uatsdin of brisk flow to MCA/ ABIOLA. All performed over a 5mm spider-x
[2018-05-27] MEDS ORDERED: fentaNYL Citrate Inj 100 MCG/2 ML Ampul ONE (18:19)
[2018-05-27] MEDS: Famotidine PF Inj 20 MG/2 ML Vial IV.PUSH SCH (20:22)
[2018-05-27] MEDS: Morphine Inj 4 MG/ML Vial IV.PUSH PRN (20:23)
[2018-05-27] MEDS: Sod Chloride 0.9% Inj 1,000 ML IV.SIG SCH (20:31)
--- NOTE | 2018-05-27 20:36 | ECG ---
Date Performed: 05/27/2018 Time Performed: 19:33:39 PTAGE: 47 years EKG: SINUS TACHYCARDIA MARKED LEFT AXIS DEVIATION RIGHT BUNDLE BRANCH BLOCK MINIMAL VOLTAGE CRIT ERIA FOR LVH, CONSIDER NORMAL VARIANT ABNORMAL ECG PREVIOUS TRACING : 05/26/2018 05.48 Since the previous tracing, no significant change noted DOCTOR: Lily Damon Interpretating Date/Time 05/27/2018 20:35:07
[2018-05-27 21:00] LABS: Baso % (Auto) 0.4 % (0.0-2.0); Hematocrit 21.7 % (39.0-51.0); Hemoglobin 7.8 gm/dL (13.0-17.0); Lymph # (Auto) 2.2 th/mm3 (1.0-4.8); Lymph % (Auto) 21.1 % (9.0-44.0); Mean Corpuscular HGB Conc 35.7 % (32.0-36.0); Mean Corpuscular Hemoglobin 31.4 pg (27.0-34.0); Mean Platelet Volume 7.6 fL (7.0-11.0); Mono # (Auto) 1.3 th/mm3 (0.0-0.9); Mono % (Auto) 12.2 % (0.0-8.0); Neut # (Auto) 6.9 th/mm3 (1.8-7.7); Neut % (Auto) 66.3 % (16.0-70.0); Platelet Count 155 th/mm3 (150-450); Red Blood Count 2.47 mil/mm3 (4.50-5.90); Red Cell Distribution Width 14.3 % (11.6-17.2); White Blood Count 10.4 th/mm3 (4.0-11.0)
[2018-05-27 22:15] LABS: Troponin I 3.03 ng/mL (0.02-0.05)
[2018-05-27 22:32] LABS: CKMB Percent 0.2 % (0.0-4.0); Creatine Kinase MB 12.7 ng/mL (0.5-3.6)
[2018-05-27 22:58] LABS: Activated Partial Thrombo Time 43.7 sec (23.4-31.7); INR 1.1 Ratio; Prothrombin Time 11.1 sec (9.8-11.6)
[2018-05-28] MEDS: ceFAZolin 2 GM Premix Inj 2 GM/50 ML PIGGYBACK IV.SIG SCH ×3 (01:04→13:45)
[2018-05-28] MEDS: Methocarbamol 500 MG Tablet PO SCH ×2 (02:40→05:52)
[2018-05-28] MEDS: Morphine Inj 4 MG/ML Vial IV.PUSH PRN (02:41)
[2018-05-28] MEDS: Gentamicin/NS 80 mg Premix 100 ML IV.SIG SCH ×2 (04:33→13:46)
[2018-05-28 06:15] LABS: Baso % (Auto) 0.2 % (0.0-2.0); Eos % (Auto) 0.1 % (0.0-4.0); Lymph # (Auto) 1.8 th/mm3 (1.0-4.8); Lymph % (Auto) 16.3 % (9.0-44.0); Mean Corpuscular Hemoglobin 30.9 pg (27.0-34.0); Mean Platelet Volume 7.7 fL (7.0-11.0); Mono # (Auto) 1.2 th/mm3 (0.0-0.9); Mono % (Auto) 11.3 % (0.0-8.0); Neut % (Auto) 72.1 % (16.0-70.0); Platelet Count 158 th/mm3 (150-450); Red Blood Count 2.26 mil/mm3 (4.50-5.90); Red Cell Distribution Width 14.6 % (11.6-17.2); White Blood Count 11.1 th/mm3 (4.0-11.0)
[2018-05-28 06:20] LABS: Hematocrit 20.6 % (39.0-51.0)
[2018-05-28 06:25] LABS: Alanine Aminotransferase 64 U/L (12-78); Albumin 2.1 g/dL (3.4-5.0); Alkaline Phosphatase 36 U/L (45-117); Anion Gap 6 meq/L (5-15); Aspartate Aminotransferase 148 U/L (15-37); Blood Urea Nitrogen 10 mg/dL (7-18); Calcium 7.2 mg/dL (8.5-10.1); Carbon Dioxide 24.7 meq/L (21.0-32.0); Chloride 109 meq/L (98-107); Glomerular Filtration Rate Greater Than 89 mL/min (>89); Glucose,Random 138 mg/dL (74-106); Potassium 4.3 meq/L (3.5-5.1); Sodium 140 meq/L (136-145); Total Protein 5.9 g/dL (6.4-8.2)
[2018-05-28] MEDS: Chlorhexidine Gluconate 2% 1 Pack (2 Cloths) TOPICAL SCH (06:25)
--- NOTE | 2018-05-28 07:37 | P.PNOP ---
Subjective Interval history: Yesterday afternoon, patient was found to have a stroke with left-sided weakness. Patient underwent IR procedure for right carotid embolectomy, stent placement and thrombolysis Physical Exam Vital signs: Vital Signs 05/27/18 08:00 05/27/18 09:00 05/27/18 12:00 Temperature 99.8 F H 97.1 F L Pulse Rate 118 H 104 H 101 H Respiratory Rate 16 14 18 Blood Pressure 153/78 H 159/81 H Pulse Oximetry 92 L 96 05/27/18 16:00 05/27/18 17:55 05/27/18 18:00 Temperature 100.2 F H 98.5 F Pulse Rate 119 H 107 H 105 H Respiratory Rate 20 16 16 Blood Pressure 165/75 H 158/79 H 148/97 H Pulse Oximetry 100 100 100 05/27/18 18:15 05/27/18 18:30 05/27/18 19:00 Temperature 98.4 F Pulse Rate 98 H 95 H 94 H Respiratory Rate 16 16 21 Blood Pressure 159/83 H 155/73 H 143/65 H Pulse Oximetry 100 100 100 05/27/18 19:15 05/27/18 19:30 05/27/18 19:45 Temperature 100.9 F H Pulse Rate 104 H 114 H 104 H Respiratory Rate 20 20 18 Blood Pressure 146/71 H 153/72 H 147/74 H Pulse Oximetry 100 100 100 05/27/18 20:00 05/27/18 20:30 05/27/18 21:00 Temperature 100.0 F H 100.0 F H Pulse Rate 122 H 114 H 124 H Respiratory Rate 25 H Blood Pressure 138/64 133/65 141/65 H Pulse Oximetry 100 100 100 05/27/18 21:30 05/27/18 22:00 05/27/18 22:30 Temperature Pulse Rate 106 H 104 H 116 H Respiratory Rate Blood Pressure 139/63 143/64 H 135/62 Pulse Oximetry 100 05/27/18 22:56 05/27/18 23:00 05/27/18 23:30 Temperature 101.6 F H Pulse Rate 110 H 116 H 106 H Respiratory Rate 16 Blood Pressure 145/65 H 130/61 Pulse Oximetry 100 05/28/18 00:42 05/28/18 00:45 05/28/18 01:00 Temperature Pulse Rate 114 H 113 H 111 H Respiratory Rate 18 19 26 H Blood Pressure 124/56 L 126/56 L Pulse Oximetry 100 100 100 05/28/18 01:15 05/28/18 01:30 05/28/18 01:45 Temperature Pulse Rate 110 H 110 H 118 H Respiratory Rate 19 20 24 Blood Pressure 126/58 L 129/58 L 128/60 Pulse Oximetry 100 100 100 05/28/18 02:00 05/28/18 02:15 05/28/18 02:30 Temperature Pulse Rate 116 H 119 H 114 H Respiratory Rate 21 27 H 20 Blood Pressure 132/63 137/67 126/57 L Pulse Oximetry 100 100 100 05/28/18 02:45 05/28/18 03:00 05/28/18 03:15 Temperature Pulse Rate 119 H 120 H 120 H Respiratory Rate 20 20 22 Blood Pressure 127/60 129/62 130/62 Pulse Oximetry 100 100 100 05/28/18 03:30 05/28/18 03:35 05/28/18 03:45 Temperature Pulse Rate 128 H 121 H 127 H Respiratory Rate 21 20 21 Blood Pressure 132/61 127/61 Pulse Oximetry 100 100 05/28/18 04:00 05/28/18 04:15 Temperature Pulse Rate 135 H 125 H Respiratory Rate 22 22 Blood Pressure 125/65 125/62 Pulse Oximetry 100 100 Intake & Output 05/27/18 05/28/18 05/28/18 18:59 06:59 18:59 Intake Total 2150 / 2150 1357 / 1357 Output Total 1300 / 1300 1350 / 1350 Balance 850 / 850 7 / 7 Weight 104.9 kg Intake: IV 2150 / 2150 1357 / 1357 Heparin/D5W 25,000 U/250 mL 25, 147 / 147 000 unit In 250 ml @ Per Protocol IV.CONT TITRATE PRN Rx #:[id number] LR 1000 mL Inj 1,000 ML @ 100 1000 / 1000 mls/hr IV.CONT .Q10H [facility] Rx#: [id number] NS Inj 1,000 ML @ 100 mls/hr IV 1000 / 1000 .CONT .Q10H [facility] Rx#:[id number] Gentamicin/NS 80 mg Premix 100 100 / 100 200 / 200 ML @ 200 mls/hr IV.SIG Q8H [facility] Rx#:[id number] NS Inj 1,000 ML @ 84 mls/hr IV. 960 / 960 SIG .[id number] [facility] Rx#:[id number] Ancef 2 GM Premix Inj 2 gm In 50 / 50 50 / 50 50 ml @ 100 mls/hr IV.SIG Q8H [facility] Rx#:[id number] Output: Urine Amount (Catheter) 1300 / 1300 1350 / 1350 Indwelling Urethral Catheter 1300 / 1300 1350 / 1350 Other: Mode Setting Right Leg Continuous Continuous Date of Last Bowel Movement 05/25/18 05/25/18 Narrative: Resting but arousable. Currently, does not follow commands Right lower extremity: Splint in place along with VAC with good seal. Brisk cap refill Left lower extremity: Dressing in place without significant drainage. Brisk cap refill - Urinary Catheter Management Indwelling Urethral Catheter Cath placed during this visit: yes Reason for continuing: Hourly intake/output Insertion date: 05/26/18 Insertion time: 04:30 Results - Labs CBC & Chem 7: 05/28/18 05:15 05/28/18 05:15 Laboratory Results - last 24 hr 05/27/18 05/27/18 05/27/18 13:35 14:30 20:40 WBC 10.4 RBC 2.47 L Hgb 7.8 L D Hct 21.7 L MCV 88.0 MCH 31.4 MCHC 35.7 RDW 14.3 Plt Count 155 MPV 7.6 Neut % (Auto) 66.3 Lymph % (Auto) 21.1 [place] % (Auto) 12.2 H Eos % (Auto) 0.0 Baso % (Auto) 0.4 Neut # (Auto) 6.9 Lymph # (Auto) 2.2 [place] # (Auto) 1.3 H Eos # (Auto) 0.0 Baso # (Auto) 0.0 WBC Differential . Differential Comment Auto diff final PT INR APTT Fibrinogen Puncture Site Right radial Patient Temperature 98.6 O2 Saturation 97 ABG pH 7.47 H ABG pCO2 35 L ABG pO2 215 H ABG HCO3 26 ABG O2 Content 11.7 L ABG Base Excess 2.1 H ABG Methemoglobin 1.3 Fidel Test Present Hemoglobin 8.2 L Carboxyhemoglobin 1.4 O2 Delivery Device Nrb Liter Flow 15.00 Critical Value No Sodium Potassium Chloride Carbon Dioxide Anion Gap BUN Creatinine Estimated GFR POC Glucose 133 H Random Glucose Calcium Calcium Adj for Albumin Total Bilirubin AST ALT Alkaline Phosphatase Total Creatine Kinase CK-MB (CK-2) CK-MB (CK-2) % Troponin I Total Protein Albumin MTS Gel Crossmatch 05/27/18 05/27/18 05/28/18 20:40 22:00 05:15 WBC 11.1 H RBC 2.26 L Hgb 7.0 L Hct 20.6 L* MCV 91.0 MCH 30.9 MCHC 34.0 RDW 14.6 Plt Count 158 MPV 7.7 Neut % (Auto) 72.1 H Lymph % (Auto) 16.3 [place] % (Auto) 11.3 H Eos % (Auto) 0.1 Baso % (Auto) 0.2 Neut # (Auto) 8.0 H Lymph # (Auto) 1.8 [place] # (Auto) 1.2 H Eos # (Auto) 0.0 Baso # (Auto) 0.0 WBC Differential . Differential Comment Auto diff final PT 11.1 INR 1.1 APTT 43.7 H D Fibrinogen 494 H Puncture Site Patient Temperature O2 Saturation ABG pH ABG pCO2 ABG pO2 ABG HCO3 ABG O2 Content ABG Base Excess ABG Methemoglobin Fidel Test Hemoglobin Carboxyhemoglobin O2 Delivery Device Liter Flow Critical Value Sodium Potassium Chloride Carbon Dioxide Anion Gap BUN Creatinine Estimated GFR POC Glucose Random Glucose Calcium Calcium Adj for Albumin Total Bilirubin AST ALT Alkaline Phosphatase Total Creatine Kinase 8395 H CK-MB (CK-2) 12.7 H CK-MB (CK-2) % 0.2 Troponin I 3.03 H* Total Protein Albumin MTS Gel Crossmatch 05/28/18 05/28/18 05/28/18 05:15 05:15 06:45 WBC RBC Hgb Hct MCV MCH MCHC RDW Plt Count MPV Neut % (Auto) Lymph % (Auto) [place] % (Auto) Eos % (Auto) Baso % (Auto) Neut # (Auto) Lymph # (Auto) [place] # (Auto) Eos # (Auto) Baso # (Auto) WBC Differential Differential Comment PT INR APTT 31.5 D Fibrinogen Puncture Site Patient Temperature O2 Saturation ABG pH ABG pCO2 ABG pO2 ABG HCO3 ABG O2 Content ABG Base Excess ABG Methemoglobin Fidel Test Hemoglobin Carboxyhemoglobin O2 Delivery Device Liter Flow Critical Value Sodium 140 Potassium 4.3 Chloride 109 H Carbon Dioxide 24.7 Anion Gap 6 BUN 10 Creatinine 0.89 Estimated GFR Greater than 89 POC Glucose Random Glucose 138 H Calcium 7.2 L* Calcium Adj for Albumin 8.7 Total Bilirubin 0.4 AST 148 H ALT 64 Alkaline Phosphatase 36 L Total Creatine Kinase CK-MB (CK-2) CK-MB (CK-2) % Troponin I Total Protein 5.9 L D Albumin 2.1 L MTS Gel Crossmatch See Detail - Imaging Impressions Head CT 05/27/18 00:00 CONCLUSION: 1. New finding of acute infarct in the distribution of the posterior division of the right MCA. There is associated effacement of sulci and mild mass effect but no midline shift. 2. Findings were discussed with patient's nurse. . . Head CTA 05/27/18 13:40 CONCLUSION: 1. Multiple areas of thrombus in the right internal carotid artery suspicious for carotid artery dissection with this clinical history. 2. Occlusion of posterior division MCA on the right. Decreased filling of MCA branches in the right frontal lobe as well. Report was called by Dr. Argueta to Dr. Tinajero at 1440 . Neck CTA 05/27/18 13:40 CONCLUSION: Right internal carotid artery dissection with thrombus seen just distal to the bifurcation and just proximal to the intracranial segment. Report was called by Dr. Argueta to Dr. Tinajero at 1440.. CT CAD 05/27/18 13:48 CONCLUSION: Physiological brain perfusion parameters with RAPID analysis as above. The decision for consideration of therapy is multi factorial and multi disciplinary relying on subjective and objective clinical data. This data is not construed or intended to be the sole determinant of treatment eligibility. Chest X-Ray 05/27/18 14:38 CONCLUSION: 1. Left IJ central venous catheter in place. No evidence of pneumothorax. 2. Mild bilateral patchy pulmonary opacity likely representing atelectasis. Assessment and Plan - Assessment and Plan 1) Right Open Tibia/Fibula Fxs and left thigh wound s/p I&D with IMN right tibia , ORIF right medial malleolus, ORIF right fibula, I&D wound closure left thigh - POD2 -NWB -maintain splint -maintain incisional vac. intermittent, 125mmg, 3:1 -will plan for removal of incisional vac on tuesday by juan team -ortho surgeries complete at this time -begin daily dressing changes left thigh with xeroform/4x4/ALLY on POD 2 -Medical management by ICU team -will follow up with Juan or GIULIANO in 2 weeks
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
[2018-05-28] MEDS: Famotidine PF Inj 20 MG/2 ML Vial IV.PUSH SCH ×2 (08:52→20:25)
[2018-05-28] MEDS: Lidocaine 5% Patch T-DERMAL SCH (08:53)
[2018-05-28] MEDS: Senna/Docusate Sodium 8.6/50 MG Tablet PO SCH ×2 (08:54→20:24)
--- NOTE | 2018-05-28 09:31 | CT ---
EXAM DATE: 05/28/2018 9:23 AM EST AGE/SEX: 47 years / Male INDICATIONS: Abnormal prior CT brain. CLINICAL DATA: This is the patient's subsequent encounter. Patient reports that signs and symptoms h ave been present for 1 day and indicates a pain score of Nonresponsive. MEDICAL/SURGICAL HISTORY: Non-responsive. Non-responsive. RADIATION DOSE: 50.71 CTDI (mGy) COMPARISON: [facility] [place], CT HEAD W/O CONTRAST, 05/27/2018. . TECHNIQUE: CT of the head without contrast. Using automated exposure control and adjustment of the mA and/or kV according to patient size, radiation dose was kept as low as reasonably achievable to ob tain optimal diagnostic quality images. DICOM format image data is available electronically for revi ew and comparison. FINDINGS: Evolving transcortical infarct in the right posterior sylvian region localized mass effect and no hem orrhage as yet. The left hemisphere is unremarkable Posterior fossa appears normal CONCLUSION: 1. Evolving infarct right posterior sylvian region without hemorrhage or significant change. There i s localized mass effect evidence. . . Electronically signed by: Silvano Bennett MD Board Certified Radiologist 05/28/2018 9:29 AM EST
--- NOTE | 2018-05-28 10:13 | ECHRPT ---
Indication: chest pain CONCLUSIONS Normal left ventricular size. Wall thickness is normal. The left ventricular systolic function is hyperdynamic with an estimated ejection fraction in the ra nge of 65- 70%. The estimated pulmonary arterial pressure is 55 mmHg. There is mild to moderate tricuspid valve regurgitation. Patient tachycardic during study BP: / HR: Rhythm: MEASUREMENTS (Male / Female) Normal Values Technical Quality:Technically difficult study 2D ECHO LV Diastolic Diameter PLAX 4.6 cm 4.2 - 5.9 / 3.9 - 5.3 cm LV Systolic Diameter PLAX 2.6 cm IVS Diastolic Thickness 0.9 cm 0.6 - 1.0 / 0.6 - 0.9 cm LVPW Diastolic Thickness 1.1 cm 0.6 - 1.0 / 0.6 - 0.9 cm LV Relative Wall Thickness 0.4 RV Internal Dim ED PLAX 3.3 cm LVOT Diameter 2.0 cm Aortic Root Diameter 2.2 cm LA Systolic Diameter LX 3.0 cm 3.0 - 4.0 / 2.7 - 3.8 cm M-MODE Aortic Root Diameter MM 3.1 cm LA Systolic Diameter MM 2.9 cm LA Ao Ratio MM 0.9 AV Cusp Separation MM 2.0 cm DOPPLER AV Peak Velocity 245.5 cm/s AV Peak Gradient 24.1 mmHg AV Mean Gradient 12.0 mmHg AV Velocity Time Integral 30.7 cm LVOT Peak Velocity 178.5 cm/s LVOT Peak Gradient 12.7 mmHg LVOT Velocity Time Integral 12.0 cm AV Area Cont Eq vti 1.2 cm AV Area Cont Eq pk 2.3 cm Mitral E Point Velocity 88.8 cm/s Mitral A Point Velocity 72.6 cm/s Mitral E to A Ratio 1.2 LV E' Lateral Velocity 8.1 cm/s Mitral E to LV E' Lateral Ratio 11.0 LV E' Septal Velocity 6.9 cm/s Mitral E to LV E' Septal Ratio 12.8 TR Peak Velocity 335.0 cm/s TR Peak Gradient 44.9 mmHg Right Atrial Pressure 10.0 mmHg Pulmonary Artery Systolic Pressu 54.9 mmHg Right Ventricular Systolic Press 54.9 mmHg PV Peak Velocity 212.0 cm/s PV Peak Gradient 18.0 mmHg FINDINGS LEFT VENTRICLE Normal left ventricular size. Wall thickness is normal. The left ventricular systolic function is hyperdynamic with an estimated ejection fraction in the ra nge of 65- 70%. RIGHT VENTRICLE Normal right ventricular size and systolic function. LEFT ATRIUM The left atrial size is normal. RIGHT ATRIUM The right atrial size is normal. ATRIAL SEPTUM Normal atrial septal thickness without atrial level shunting by limited color doppler interrogation. AORTA The aortic root and proximal ascending aorta are normal in size on limited imaging. MITRAL VALVE Structurally normal mitral valve. No mitral valve stenosis or regurgitation. AORTIC VALVE Trileaflet aortic valve. No aortic valve stenosis or regurgitation. TRICUSPID VALVE The estimated pulmonary arterial pressure is 55 mmHg. There is mild to moderate tricuspid valve regurgitation. PULMONARY VALVE No pulmonary valve regurgitation or stenosis. VESSELS The inferior vena cava is normal in size. PERICARDIUM No pericardial effusion. Gt Alarcon MD (Electronically Signed) Final Date:28 May 2018 10:12
[2018-05-28] MEDS ORDERED: Acetaminophen 650 MG Supp RECTAL PRN (10:39)
[2018-05-28] MEDS: Heparin Drip 25,000 UNIT/250 ML BAG IV.CONT PRN (13:40)
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
[2018-05-28] MEDS: Sod Chloride 0.9% Inj 1,000 ML IV.SIG SCH ×2 (19:05→21:02)
[2018-05-29 03:46] LABS: Baso # (Auto) 0.1 th/mm3 (0.0-0.2); Baso % (Auto) 0.6 % (0.0-2.0); Eos % (Auto) 0.1 % (0.0-4.0); Hematocrit 21.8 % (39.0-51.0); Hemoglobin 7.7 gm/dL (13.0-17.0); Lymph % (Auto) 19.2 % (9.0-44.0); Mean Corpuscular HGB Conc 35.1 % (32.0-36.0); Mean Corpuscular Hemoglobin 30.7 pg (27.0-34.0); Mean Corpuscular Volume 87.6 fL (80.0-100.0); Mean Platelet Volume 8.1 fL (7.0-11.0); Mono # (Auto) 1.7 th/mm3 (0.0-0.9); Mono % (Auto) 11.1 % (0.0-8.0); Neut # (Auto) 10.8 th/mm3 (1.8-7.7); Platelet Count 136 th/mm3 (150-450); Red Blood Count 2.49 mil/mm3 (4.50-5.90); Red Cell Distribution Width 14.1 % (11.6-17.2); White Blood Count 15.7 th/mm3 (4.0-11.0)
[2018-05-29 04:02] LABS: Anion Gap 5 meq/L (5-15); Blood Urea Nitrogen 15 mg/dL (7-18); Calcium 7.1 mg/dL (8.5-10.1); Chloride 108 meq/L (98-107); Glomerular Filtration Rate Greater Than 89 mL/min (>89); Glucose,Random 121 mg/dL (74-106); Potassium 4.3 meq/L (3.5-5.1); Sodium 140 meq/L (136-145)
[2018-05-29 04:09] LABS: Calcium-Albumin Corrected 8.7 mg/dL (8.5-10.1)
[2018-05-29 04:34] LABS: Lymphocytes 6 % (9-44); Monocytes 7 % (0-8); Platelet Estimate Normal (Normal); Platelet Morphology Normal (Normal); Promyelocyte 1 % (0-0); Tallied Nucleated RBC 2 (0-0)
[2018-05-29] MEDS: Sod Chloride 0.9% Inj 1,000 ML IV.SIG SCH ×2 (06:03→09:33)
[2018-05-29] MEDS: Chlorhexidine Gluconate 2% 1 Pack (2 Cloths) TOPICAL SCH (06:13)
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
[2018-05-29] MEDS: Famotidine PF Inj 20 MG/2 ML Vial IV.PUSH SCH ×2 (09:00→21:25)
[2018-05-29] MEDS: Senna/Docusate Sodium 8.6/50 MG Tablet PO SCH ×2 (10:04→21:25)
[2018-05-29] MEDS: Lidocaine 5% Patch T-DERMAL SCH (10:05)
[2018-05-29] MEDS ORDERED: Vancomycin Consult Pharmacy OTHER PRN (10:08)
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
[2018-05-29] MEDS: Heparin Drip 25,000 UNIT/250 ML BAG IV.CONT PRN (12:05)
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
--- NOTE | 2018-05-29 12:42 | P.PNOP ---
Subjective Interval history: POD 3 s/p I&D with IMN right tibia and fibula POD 3 s/p I&D wound closure left thigh stable. resting comfortably Physical Exam Vital signs: Vital Signs 05/28/18 13:00 05/28/18 13:40 05/28/18 14:00 Temperature Pulse Rate 103 H 107 H 92 H Respiratory Rate 21 23 22 Blood Pressure 143/65 H Pulse Oximetry 100 100 100 05/28/18 14:40 05/28/18 15:00 05/28/18 15:40 Temperature Pulse Rate 115 H 109 H 110 H Respiratory Rate 20 29 H 27 H Blood Pressure 151/70 H 149/66 H Pulse Oximetry 100 97 100 05/28/18 16:00 05/28/18 16:24 05/28/18 16:40 Temperature 100.6 F H Pulse Rate 111 H 115 H 115 H Respiratory Rate 28 H 16 28 H Blood Pressure 145/65 H Pulse Oximetry 83 L 100 05/28/18 17:00 05/28/18 17:40 05/28/18 18:00 Temperature Pulse Rate 107 H 114 H 118 H Respiratory Rate 23 32 H 27 H Blood Pressure 146/67 H Pulse Oximetry 100 98 85 L 05/28/18 18:40 05/28/18 19:00 05/28/18 19:40 Temperature Pulse Rate 107 H 110 H 115 H Respiratory Rate 34 H 25 H 25 H Blood Pressure 140/58 L 149/65 H Pulse Oximetry 98 100 05/28/18 20:00 05/28/18 20:40 05/28/18 20:52 Temperature Pulse Rate 105 H 99 H 84 Respiratory Rate 26 H 27 H 20 Blood Pressure 153/79 H Pulse Oximetry 93 L 100 100 05/28/18 21:00 05/28/18 21:40 05/28/18 22:00 Temperature Pulse Rate 101 H 101 H 102 H Respiratory Rate 28 H 22 22 Blood Pressure 154/70 H Pulse Oximetry 100 100 100 05/28/18 22:40 05/28/18 23:00 05/28/18 23:40 Temperature Pulse Rate 100 H 90 91 H Respiratory Rate 19 19 24 Blood Pressure 148/72 H 158/73 H Pulse Oximetry 100 100 100 05/29/18 00:00 05/29/18 00:40 05/29/18 01:00 Temperature 98.8 F Pulse Rate 89 116 H 107 H Respiratory Rate 29 H 21 20 Blood Pressure 155/73 H Pulse Oximetry 100 100 100 05/29/18 01:40 05/29/18 02:00 05/29/18 02:40 Temperature Pulse Rate 112 H 114 H 103 H Respiratory Rate 21 17 17 Blood Pressure 141/69 H 138/71 Pulse Oximetry 94 L 96 100 05/29/18 03:00 05/29/18 03:33 05/29/18 03:37 Temperature Pulse Rate 100 H 103 H Respiratory Rate 18 20 Blood Pressure Pulse Oximetry 100 100 05/29/18 03:40 05/29/18 04:00 05/29/18 04:40 Temperature Pulse Rate 102 H 110 H 102 H Respiratory Rate 21 22 16 Blood Pressure 141/70 H 147/70 H Pulse Oximetry 100 100 97 05/29/18 05:00 05/29/18 05:40 05/29/18 06:00 Temperature 101.1 F H Pulse Rate 103 H 104 H 109 H Respiratory Rate 18 17 24 Blood Pressure 155/85 H Pulse Oximetry 99 98 100 05/29/18 06:02 05/29/18 06:40 05/29/18 07:00 Temperature Pulse Rate 113 H 112 H Respiratory Rate 13 27 H 23 Blood Pressure 146/69 H Pulse Oximetry 99 100 05/29/18 07:40 05/29/18 08:00 05/29/18 08:40 Temperature Pulse Rate 120 H 120 H 115 H Respiratory Rate 24 28 H 28 H Blood Pressure 141/69 H 140/76 Pulse Oximetry 100 100 100 05/29/18 09:00 05/29/18 09:24 05/29/18 09:40 Temperature Pulse Rate 116 H 111 H 120 H Respiratory Rate 25 H 20 29 H Blood Pressure 141/72 H 147/126 H Pulse Oximetry 100 91 L 78 L 05/29/18 09:43 05/29/18 10:00 05/29/18 10:36 Temperature Pulse Rate 136 H 110 H 109 H Respiratory Rate 35 H 22 19 Blood Pressure 139/73 Pulse Oximetry 89 L 98 98 05/29/18 10:40 05/29/18 11:00 Temperature 100 F H Pulse Rate 106 H 107 H Respiratory Rate 23 20 Blood Pressure 153/72 H Pulse Oximetry 97 98 Intake & Output 05/28/18 05/29/18 05/29/18 18:59 06:59 18:59 Intake Total 383 / 383 40 / 40 350 / 350 Output Total 900 / 900 1000 / 1000 Balance -517 / -517 -960 / -960 350 / 350 Weight 108.1 kg Intake: IV 143 / 143 40 / 40 350 / 350 Heparin/D5W 25,000 U/250 mL 25, 103 / 103 250 / 250 000 unit In 250 ml @ Per Protocol IV.CONT TITRATE PRN Rx #:[id number] Maxipime Inj 2,000 MG In NS Inj 100 / 100 100 ML @ 200 mls/hr IV.SIG Q8H [facility] Rx#:[id number] NS Inj 1,000 ML @ 84 mls/hr IV. 40 / 40 40 / 40 SIG .[id number] [facility] Rx#:[id number] Oral 240 / 240 Intake (Blood Product) Amt 0 / 0 Rbc As-3 Leukoreduced Unit 0 / 0 [id number] Rbc As-3 Leukoreduced Unit 0 / 0 [id number] Output: Urine Amount (Catheter) 900 / 900 1000 / 1000 Indwelling Urethral Catheter 900 / 900 1000 / 1000 Other: Mode Setting Right Leg Continuous Continuous Continuous Date of Last Bowel Movement 05/25/18 05/28/18 05/28/18 # Bowel Movements 1 Narrative: RLE: +splint. intact. +vac. good seal. LLE: dressings intact. clean and dry - Urinary Catheter Management Indwelling Urethral Catheter Cath placed during this visit: yes Reason for continuing: Other continuation reason Insertion date: 05/26/18 Insertion time: 04:30 Results - Labs CBC & Chem 7: 05/29/18 03:30 05/29/18 03:30 Laboratory Results - last 24 hr 05/28/18 05/28/18 05/29/18 13:15 20:20 03:30 WBC 15.7 H RBC 2.49 L Hgb 7.7 L Hct 21.8 L MCV 87.6 MCH 30.7 MCHC 35.1 RDW 14.1 Plt Count 136 L MPV 8.1 Prelim Diff (Auto) Slide review pending Neut % (Auto) 69.0 Lymph % (Auto) 19.2 Wilson % (Auto) 11.1 H Eos % (Auto) 0.1 Baso % (Auto) 0.6 Neut # (Auto) 10.8 H Lymph # (Auto) 3.0 Wilson # (Auto) 1.7 H Eos # (Auto) 0.0 Baso # (Auto) 0.1 WBC Differential Manual diff final Seg Neuts % (Manual) 84 H Band Neuts % (Manual) 2 Lymphocytes % (Manual) 6 L Monocytes % (Manual) 7 Promyelocytes % (Man) 1 H Abs Neuts (Manual) 13.7 H Nucleated RBCs/100 WBC 2 H Differential Comment . Platelet Estimate Normal Platelet Morphology Normal APTT 38.9 H D 40.4 H Sodium Potassium Chloride Carbon Dioxide Anion Gap BUN Creatinine Estimated GFR Random Glucose Calcium Calcium Adj for Albumin Albumin 05/29/18 05/29/18 03:30 03:30 WBC RBC Hgb Hct MCV MCH MCHC RDW Plt Count MPV Prelim Diff (Auto) Neut % (Auto) Lymph % (Auto) Wilson % (Auto) Eos % (Auto) Baso % (Auto) Neut # (Auto) Lymph # (Auto) Wilson # (Auto) Eos # (Auto) Baso # (Auto) WBC Differential Seg Neuts % (Manual) Band Neuts % (Manual) Lymphocytes % (Manual) Monocytes % (Manual) Promyelocytes % (Man) Abs Neuts (Manual) Nucleated RBCs/100 WBC Differential Comment Platelet Estimate Platelet Morphology APTT 37.6 H Sodium 140 Potassium 4.3 Chloride 108 H Carbon Dioxide 27.0 Anion Gap 5 BUN 15 Creatinine 0.76 Estimated GFR Greater than 89 Random Glucose 121 H Calcium 7.1 L* Calcium Adj for Albumin 8.7 Albumin 2.0 L - Imaging Impressions Cerebral Angiography 05/27/18 00:00 CONCLUSION: 1. Extensive thrombosis with near occlusion of the right internal carotid. 2. Christian of flow with aspiration embolectomy and carotid stenting as above. 3. Small foci of intimal irregularity in the proximal internal just above the bifurcation. This did not appear to be flow-limiting and therefore, no intervention was performed at this particular location. Chest X-Ray 05/29/18 06:00 CONCLUSION: Increasing consolidative changes left base. Mild interstitial edema, increasing interval. Assessment and Plan - Assessment and Plan 1) Right Open Tibia/Fibula Fxs and left thigh wound s/p I&D with IMN right tibia , ORIF right medial malleolus, ORIF right fibula, I&D wound closure left thigh - POD 3 -NWB -maintain splint -maintain incisional vac. intermittent, 125mmg, 3:1 -will plan for removal of incisional vac on tuesday by juan team at bedside -ortho surgeries complete at this time -begin daily dressing changes left thigh with xeroform/4x4/ALLY on POD 2 -Medical management by ICU team -will follow up with Juan or GIULIANO in 2 weeks
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
[2018-05-29] MEDS: metroNIDAZOLE 500 MG Tablet PO SCH ×2 (13:16→21:25)
[2018-05-29 13:22] LABS: Bacteria,Urine Rare /hpf; Bilirubin,Urine Negative (Negative); Clarity,Urine Clear (Clear); Color,Urine Yellow (Yellw/Straw); Glucose,Urine (UA) Negative (Negative); Hyaline Casts,Urine 7 /lpf (0-3); Leukocyte Esterase,Urine Negative (Negative); Mucus,Urine Few /lpf (Occasional); Nitrite,Urine Negative (Negative); Specific Gravity,Urine 1.016 (1.002-1.035); Squamous Epithelial Cell,Urine <1 /hpf (0-5)
--- NOTE | 2018-05-29 18:27 | P.PNCC ---
Subjective 24 Hour Review/Hospital Course: 05/27/18 Patient post R tib/fib fx. CT head consistent with R MCA ischemic stroke. CTA of the head reveals large right hemispheric stroke in the distribution of MCA and CT of the neck reveals carotid artery occlusion. Stroke alert initiated and appropriate services consulted. Transfer patient to ICU. Neurologic exam Patient is awake alert but somewhat disoriented able to speak Pupils equal reactive extraocular muscles are intact Motorically patient is weaker on the left side but 3/5 and 5/5 on the right side Sensory preserved All consistent with a large right MCA distribution ischemic stroke with a right internal carotid artery occlusion extending into the middle cerebral artery Patient was adequately resuscitated at the line placed started on IV heparin Neurology and medical critical care consults are greatly appreciated Discussed with Dr. Worthington and will take patient to interventional radiology suite for immediate extraction of the clot and possible stenting of the internal carotid artery depending on the findings post removal of the clot. This patient will probably have progression of neurologic symptoms and he will likely get worse before he improves Final neurologic status remains elusive 05/28/2018 Neurologically patient much improved this morning Moves all 4 extremities speaks with slight garble oriented and alert. Patient underwent yesterday successful thromboembolectomy and stenting of internal carotid artery in internal carotid and middle cerebral arteries. Patient obviously had underlying carotid disease based on the findings during the extraction and this was a fairly narrowed area without atherosclerotic disease this finally came to grinding halt and then performed clot about it Because of the rapid response of the interventional radiology and no having a patent carotid artery with a flow to the brain Hemodynamically stable Remains on IV heparin and will switch to Eliquis/Xarelto/Coumadin tomorrow Bilateral breath sounds good inspiratory function patient is clearing secretions easily Renal function preserved Doing very well at this time 05/29/2018 Neurologic exam reveals patient to be very weak on the left side and this is worse from yesterday 2/5 motion of the left leg and left arm Patient is noted ignoring his left side CT scan reveals evolving right hemispheric infarct Speech slightly slurry but otherwise okay so her history on this patient patient will require extensive physical and occupational therapy Medicine consult appreciated Objective Vital Signs / I&O: Vital Signs 05/28/18 18:40 05/28/18 19:00 05/28/18 19:40 Temperature Pulse Rate 107 H 110 H 115 H Respiratory Rate 34 H 25 H 25 H Blood Pressure 140/58 L 149/65 H Pulse Oximetry 98 100 05/28/18 20:00 05/28/18 20:40 05/28/18 20:52 Temperature Pulse Rate 105 H 99 H 84 Respiratory Rate 26 H 27 H 20 Blood Pressure 153/79 H Pulse Oximetry 93 L 100 100 05/28/18 21:00 05/28/18 21:40 05/28/18 22:00 Temperature Pulse Rate 101 H 101 H 102 H Respiratory Rate 28 H 22 22 Blood Pressure 154/70 H Pulse Oximetry 100 100 100 05/28/18 22:40 05/28/18 23:00 05/28/18 23:40 Temperature Pulse Rate 100 H 90 91 H Respiratory Rate 19 19 24 Blood Pressure 148/72 H 158/73 H Pulse Oximetry 100 100 100 05/29/18 00:00 05/29/18 00:40 05/29/18 01:00 Temperature 98.8 F Pulse Rate 89 116 H 107 H Respiratory Rate 29 H 21 20 Blood Pressure 155/73 H Pulse Oximetry 100 100 100 05/29/18 01:40 05/29/18 02:00 05/29/18 02:40 Temperature Pulse Rate 112 H 114 H 103 H Respiratory Rate 21 17 17 Blood Pressure 141/69 H 138/71 Pulse Oximetry 94 L 96 100 05/29/18 03:00 05/29/18 03:33 05/29/18 03:37 Temperature Pulse Rate 100 H 103 H Respiratory Rate 18 20 Blood Pressure Pulse Oximetry 100 100 05/29/18 03:40 05/29/18 04:00 05/29/18 04:40 Temperature Pulse Rate 102 H 110 H 102 H Respiratory Rate 21 22 16 Blood Pressure 141/70 H 147/70 H Pulse Oximetry 100 100 97 05/29/18 05:00 05/29/18 05:40 05/29/18 06:00 Temperature 101.1 F H Pulse Rate 103 H 104 H 109 H Respiratory Rate 18 17 24 Blood Pressure 155/85 H Pulse Oximetry 99 98 100 05/29/18 06:02 05/29/18 06:40 05/29/18 07:00 Temperature Pulse Rate 113 H 112 H Respiratory Rate 13 27 H 23 Blood Pressure 146/69 H Pulse Oximetry 99 100 05/29/18 07:40 05/29/18 08:00 05/29/18 08:40 Temperature Pulse Rate 120 H 120 H 115 H Respiratory Rate 24 28 H 28 H Blood Pressure 141/69 H 140/76 Pulse Oximetry 100 100 100 05/29/18 09:00 05/29/18 09:24 05/29/18 09:40 Temperature Pulse Rate 116 H 111 H 120 H Respiratory Rate 25 H 20 29 H Blood Pressure 141/72 H 147/126 H Pulse Oximetry 100 91 L 78 L 05/29/18 09:43 05/29/18 10:00 05/29/18 10:36 Temperature Pulse Rate 136 H 110 H 109 H Respiratory Rate 35 H 22 19 Blood Pressure 139/73 Pulse Oximetry 89 L 98 98 05/29/18 10:40 05/29/18 11:00 05/29/18 11:40 Temperature 100 F H Pulse Rate 106 H 107 H 115 H Respiratory Rate 23 20 21 Blood Pressure 153/72 H 151/74 H Pulse Oximetry 97 98 98 05/29/18 12:00 05/29/18 12:40 05/29/18 13:00 Temperature 100.9 F H Pulse Rate 119 H 121 H 123 H Respiratory Rate 22 20 20 Blood Pressure 144/66 H Pulse Oximetry 98 97 98 05/29/18 13:40 05/29/18 14:00 05/29/18 14:40 Temperature Pulse Rate 126 H 120 H 120 H Respiratory Rate 20 20 20 Blood Pressure 148/74 H 143/72 H Pulse Oximetry 98 99 98 05/29/18 15:00 05/29/18 15:40 05/29/18 16:00 Temperature 100 F H Pulse Rate 119 H 120 H 122 H Respiratory Rate 28 H 20 20 Blood Pressure 153/72 H Pulse Oximetry 98 98 99 05/29/18 16:40 05/29/18 17:00 05/29/18 17:37 Temperature Pulse Rate 115 H 115 H 118 H Respiratory Rate 20 20 18 Blood Pressure 134/68 Pulse Oximetry 05/29/18 17:46 Temperature Pulse Rate Respiratory Rate 18 Blood Pressure Pulse Oximetry Intake & Output 05/28/18 05/29/18 05/29/18 18:59 06:59 18:59 Intake Total 383 / 383 40 / 40 350 / 350 Output Total 900 / 900 1000 / 1000 Balance -517 / -517 -960 / -960 350 / 350 Weight 108.1 kg Intake: IV 143 / 143 40 / 40 350 / 350 Heparin/D5W 25,000 U/250 mL 25, 103 / 103 250 / 250 000 unit In 250 ml @ Per Protocol IV.CONT TITRATE PRN Rx #:[id number] Maxipime Inj 2,000 MG In NS Inj 100 / 100 100 ML @ 200 mls/hr IV.SIG Q8H [facility] Rx#:[id number] NS Inj 1,000 ML @ 84 mls/hr IV. 40 / 40 40 / 40 SIG .[id number] [facility] Rx#:[id number] Oral 240 / 240 Intake (Blood Product) Amt 0 / 0 Rbc As-3 Leukoreduced Unit 0 / 0 [id number] Rbc As-3 Leukoreduced Unit 0 / 0 [id number] Output: Urine Amount (Catheter) 900 / 900 1000 / 1000 Indwelling Urethral Catheter 900 / 900 1000 / 1000 Other: Mode Setting Right Leg Continuous Continuous Continuous Date of Last Bowel Movement 05/25/18 05/28/18 05/28/18 # Bowel Movements 1 Result Diagrams: 05/29/18 03:30 05/29/18 03:30 Imaging: Impressions Chest X-Ray 05/29/18 06:00 CONCLUSION: Increasing consolidative changes left base. Mild interstitial edema, increasing interval. Disinhibition Score: 17.50 Aggression Score: 14.00 Lability Score: 14.00 Agitated Behavior Total Score: 16
--- NOTE | 2018-05-29 19:04 | MR ---
EXAM DATE: 05/29/2018 6:57 PM EST AGE/SEX: 47 years / Male INDICATIONS: CVA. Left side weakness. CLINICAL DATA: This is the patient's initial encounter. Patient reports that signs and symptoms have been present for 1 day and indicates a pain score of 5/10. MEDICAL/SURGICAL HISTORY: Hypertension. Stroke. . Right carotid dissection with stent, Left le g sx, Thrombolectomy. COMPARISON: [facility] [place], CT HEAD W/O CONTRAST, 05/28/2018. . TECHNIQUE: Multiplanar, multisequence examination of the brain was performed without contrast. FINDINGS: Cerebrum: There is a large acute infarct involving the right middle cerebral artery distribution whi ch involves a large portion of the right temporal and parietal lobes. There is approximately 6 mm of subfalcine herniation to the left. No acute hemorrhage is noted. No acute extra-axial bleed is noted. White Matter: No significant signal abnormalities are seen in the white matter. Posterior Fossa: The cerebellum and brainstem are intact. The 4th ventricle is midline. The cerebel lopontine angle is unremarkable. The cerebellar tonsils are normal in position. Diffusion Imaging: No focal areas of restricted diffusion are seen. No evidence of acute infarction . Extracranial: The visualized portions of the orbits and paranasal sinuses are unremarkable. CONCLUSION: 1. Large acute infarct involving the right middle cerebral artery distribution which involves a larg e portion of the right temporal and parietal lobes. There is approximately 6 mm of subfalcine herniat ion to the left. Electronically signed by: Hoang Eddy MD Board Certified Radiologist 05/29/2018 7:03 PM EST
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
[2018-05-30] MEDS: Chlorhexidine Gluconate 2% 1 Pack (2 Cloths) TOPICAL SCH (04:20)
[2018-05-30 04:44] LABS: Baso # (Auto) 0.1 th/mm3 (0.0-0.2); Baso % (Auto) 0.7 % (0.0-2.0); Eos # (Auto) 0.1 th/mm3 (0.0-0.4); Eos % (Auto) 0.9 % (0.0-4.0); Hemoglobin 7.1 gm/dL (13.0-17.0); Lymph # (Auto) 3.4 th/mm3 (1.0-4.8); Lymph % (Auto) 19.8 % (9.0-44.0); Mean Corpuscular HGB Conc 34.6 % (32.0-36.0); Mean Corpuscular Hemoglobin 30.9 pg (27.0-34.0); Mean Corpuscular Volume 89.4 fL (80.0-100.0); Mean Platelet Volume 7.7 fL (7.0-11.0); Mono # (Auto) 1.9 th/mm3 (0.0-0.9); Mono % (Auto) 11.3 % (0.0-8.0); Neut # (Auto) 11.6 th/mm3 (1.8-7.7); Neut % (Auto) 67.3 % (16.0-70.0); Platelet Count 156 th/mm3 (150-450); Red Cell Distribution Width 14.5 % (11.6-17.2); White Blood Count 17.2 th/mm3 (4.0-11.0)
[2018-05-30 04:51] LABS: Alanine Aminotransferase 47 U/L (12-78); Albumin 2.1 g/dL (3.4-5.0); Anion Gap 5 meq/L (5-15); Aspartate Aminotransferase 83 U/L (15-37); Blood Urea Nitrogen 20 mg/dL (7-18); Calcium 7.5 mg/dL (8.5-10.1); Carbon Dioxide 26.4 meq/L (21.0-32.0); Chloride 108 meq/L (98-107); Glomerular Filtration Rate Greater Than 89 mL/min (>89); Glucose,Random 131 mg/dL (74-106); Magnesium 2.8 mg/dL (1.5-2.5); Phosphorus 1.9 mg/dL (2.5-4.9); Potassium 4.2 meq/L (3.5-5.1); Sodium 139 meq/L (136-145)
[2018-05-30 04:54] LABS: Alkaline Phosphatase 34 U/L (45-117); Hematocrit 20.6 % (39.0-51.0); Total Protein 6.2 g/dL (6.4-8.2)
[2018-05-30] MEDS: metroNIDAZOLE 500 MG Tablet PO SCH ×3 (05:51→23:20)
--- NOTE | 2018-05-30 07:17 | P.PNOP ---
Subjective Interval history: POD 4 s/p IMN right tibfib and closure left thigh doing well. no changes. stable Physical Exam Vital signs: Vital Signs 05/29/18 07:40 05/29/18 08:00 05/29/18 08:40 Temperature Pulse Rate 120 H 120 H 115 H Respiratory Rate 24 28 H 28 H Blood Pressure 141/69 H 140/76 Pulse Oximetry 100 100 100 05/29/18 09:00 05/29/18 09:24 05/29/18 09:40 Temperature Pulse Rate 116 H 111 H 120 H Respiratory Rate 25 H 20 29 H Blood Pressure 141/72 H 147/126 H Pulse Oximetry 100 91 L 78 L 05/29/18 09:43 05/29/18 10:00 05/29/18 10:36 Temperature Pulse Rate 136 H 110 H 109 H Respiratory Rate 35 H 22 19 Blood Pressure 139/73 Pulse Oximetry 89 L 98 98 05/29/18 10:40 05/29/18 11:00 05/29/18 11:40 Temperature 100 F H Pulse Rate 106 H 107 H 115 H Respiratory Rate 23 20 21 Blood Pressure 153/72 H 151/74 H Pulse Oximetry 97 98 98 05/29/18 12:00 05/29/18 12:40 05/29/18 13:00 Temperature 100.9 F H Pulse Rate 119 H 121 H 123 H Respiratory Rate 22 20 20 Blood Pressure 144/66 H Pulse Oximetry 98 97 98 05/29/18 13:40 05/29/18 14:00 05/29/18 14:40 Temperature Pulse Rate 126 H 120 H 120 H Respiratory Rate 20 20 20 Blood Pressure 148/74 H 143/72 H Pulse Oximetry 98 99 98 05/29/18 15:00 05/29/18 15:40 05/29/18 16:00 Temperature 100 F H Pulse Rate 119 H 120 H 122 H Respiratory Rate 28 H 20 20 Blood Pressure 153/72 H Pulse Oximetry 98 98 99 05/29/18 16:40 05/29/18 17:00 05/29/18 17:37 Temperature Pulse Rate 115 H 115 H 118 H Respiratory Rate 20 20 18 Blood Pressure 134/68 Pulse Oximetry 05/29/18 17:40 05/29/18 17:45 05/29/18 17:46 Temperature Pulse Rate 113 H 118 H Respiratory Rate 20 18 18 Blood Pressure 180/72 H 136/65 Pulse Oximetry 05/29/18 18:00 05/29/18 19:06 05/29/18 20:00 Temperature Pulse Rate 125 H 117 H 115 H Respiratory Rate 18 20 Blood Pressure 141/69 H Pulse Oximetry 95 94 L 05/29/18 20:41 05/29/18 21:00 05/29/18 21:04 Temperature Pulse Rate 111 H 107 H 107 H Respiratory Rate 24 58 H 42 H Blood Pressure 158/73 H Pulse Oximetry 93 L 05/29/18 21:40 05/29/18 22:00 05/29/18 23:00 Temperature Pulse Rate 113 H 111 H 114 H Respiratory Rate 60 H 35 H 18 Blood Pressure 147/74 H 141/69 H Pulse Oximetry 05/30/18 00:00 05/30/18 01:00 05/30/18 02:00 Temperature 99.7 F H Pulse Rate 109 H 110 H 109 H Respiratory Rate 16 16 16 Blood Pressure 132/71 132/66 Pulse Oximetry 94 L 05/30/18 03:00 05/30/18 04:00 05/30/18 04:10 Temperature Pulse Rate 111 H 115 H 111 H Respiratory Rate 18 62 H 24 Blood Pressure 144/76 H Pulse Oximetry 05/30/18 05:00 Temperature Pulse Rate 117 H Respiratory Rate 71 H Blood Pressure Pulse Oximetry Intake & Output 05/29/18 05/30/18 05/30/18 18:59 06:59 18:59 Intake Total 700 / 700 420 / 420 Output Total 1855 / 1855 700 / 700 Balance -1155 / -1155 -280 / -280 Weight 108.1 kg Intake: IV 350 / 350 200 / 200 Heparin/D5W 25,000 U/250 mL 25, 250 / 250 000 unit In 250 ml @ Per Protocol IV.CONT TITRATE PRN Rx #:[id number] Maxipime Inj 2,000 MG In NS Inj 100 / 100 200 / 200 100 ML @ 200 mls/hr IV.SIG Q8H ISABEL Rx#:[id number] Oral 350 / 350 220 / 220 Output: Urine Amount (Catheter) 1850 / 0 700 / 700 Indwelling Urethral Catheter 1850 / 1850 Straight 700 / 700 Wound Vac Amount 5 / 5 Right Leg 5 / 5 Other: Mode Setting Right Leg Continuous Continuous Date of Last Bowel Movement 05/29/18 05/29/18 # Bowel Movements 1 Narrative: RLE: dressings intact. +splint. +vac. good seal. removed and incisions visualized. mild bloody drainage. healing well. traumatic incision maintaining LLE: dressings clean and dry. intact. nvi - Urinary Catheter Management Indwelling Urethral Catheter Cath placed during this visit: yes, but has since been removed by the nurse Reason for continuing: Not indwelling catheter Insertion date: 05/26/18 Insertion time: 04:30 Removal date: 05/29/18 Removal time: 21:00 Straight Cath placed during this visit: no Results - Labs CBC & Chem 7: 05/30/18 04:30 05/30/18 04:30 Laboratory Results - last 24 hr 05/29/18 05/29/18 05/29/18 12:36 12:56 19:15 WBC RBC Hgb Hct MCV MCH MCHC RDW Plt Count MPV Prelim Diff (Auto) Neut % (Auto) Lymph % (Auto) [place] % (Auto) Eos % (Auto) Baso % (Auto) Neut # (Auto) Lymph # (Auto) [place] # (Auto) Eos # (Auto) Baso # (Auto) Differential Comment APTT 27.8 D 26.2 Sodium Potassium Chloride Carbon Dioxide Anion Gap BUN Creatinine Estimated GFR Random Glucose Calcium Phosphorus Magnesium Total Bilirubin AST ALT Alkaline Phosphatase Total Protein Albumin Urine Color Yellow Urine Clarity Clear Urine pH 5.0 Ur Specific [place] 1.016 Urine Protein Negative Urine Glucose (UA) Negative Urine Ketones Trace H Urine Occult Blood Small H Urine Nitrate Negative Urine Bilirubin Negative Urine Urobilinogen Less than 2 Ur Leukocyte Esterase Negative Urine RBC 1 Urine WBC 2 Ur Squamous Epith Cells <1 Urine Bacteria Rare H Hyaline Casts 7 Urine Mucus Few H Micro UA Comment Cath-culture ind Ur Microscopic Review Not Reportable Urine Culture Comments Cath-cult indicated 05/30/18 05/30/18 05/30/18 04:30 04:30 04:30 WBC 17.2 H RBC 2.30 L Hgb 7.1 L Hct 20.6 L* MCV 89.4 MCH 30.9 MCHC 34.6 RDW 14.5 Plt Count 156 MPV 7.7 Prelim Diff (Auto) Slide review pending Neut % (Auto) 67.3 Lymph % (Auto) 19.8 [place] % (Auto) 11.3 H Eos % (Auto) 0.9 Baso % (Auto) 0.7 Neut # (Auto) 11.6 H Lymph # (Auto) 3.4 [place] # (Auto) 1.9 H Eos # (Auto) 0.1 Baso # (Auto) 0.1 Differential Comment . APTT 35.3 H D Sodium 139 Potassium 4.2 Chloride 108 H Carbon Dioxide 26.4 Anion Gap 5 BUN 20 H Creatinine 0.84 Estimated GFR Greater than 89 Random Glucose 131 H Calcium 7.5 L Phosphorus 1.9 L Magnesium 2.8 H Total Bilirubin 0.5 AST 83 H ALT 47 Alkaline Phosphatase 34 L Total Protein 6.2 L Albumin 2.1 L Urine Color Urine Clarity Urine pH Ur Specific [place] Urine Protein Urine Glucose (UA) Urine Ketones Urine Occult Blood Urine Nitrate Urine Bilirubin Urine Urobilinogen Ur Leukocyte Esterase Urine RBC Urine WBC Ur Squamous Epith Cells Urine Bacteria Hyaline Casts Urine Mucus Micro UA Comment Ur Microscopic Review Urine Culture Comments - Imaging Impressions Head MRI 05/29/18 00:00 CONCLUSION: 1. Large acute infarct involving the right middle cerebral artery distribution which involves a large portion of the right temporal and parietal lobes. There is approximately 6 mm of subfalcine herniation to the left. Assessment and Plan - Assessment and Plan 1) Right Open Tibia/Fibula Fxs and left thigh wound s/p I&D with IMN right tibia , ORIF right medial malleolus, ORIF right fibula, I&D wound closure left thigh - POD 4 -NWB -maintain splint -ortho surgeries complete at this time -begin daily dressing changes left thigh with xeroform/[place] -Medical management by ICU team -splint and vac removed today at bedside -orthotech to re-splint and bandage right leg -once splint placed, it is to remain at all times -ortho cleared for discharge once splint re-applied -will follow up with Juan or GIULIANO in 2 weeks [employer] Prescription Drug Monitoring Database has been queried and verified prior to prescribing the controlled substance. Acute pain exception. This patient has normal, predicted, physiological, and time limited response to an adverse mechanical stimulus associated with surgery, trauma, or acute illness as described in my notes. There is a lack of alternative treatment options other than to include the prescribed narcotic treatment for this condition.
[2018-05-30 07:24] LABS: Lymphocytes 17 % (9-44); Metamyelocytes 1 % (0-1); Monocytes 11 % (0-8); Myelocytes 1 % (0-0); Tallied Nucleated RBC 4 (0-0)
[2018-05-30 07:25] LABS: Platelet Estimate Normal (Normal); Platelet Morphology Normal (Normal)
[2018-05-30] MEDS: Heparin Drip 25,000 UNIT/250 ML BAG IV.CONT PRN ×2 (07:46→23:22)
[2018-05-30] MEDS: Famotidine PF Inj 20 MG/2 ML Vial IV.PUSH SCH ×2 (08:43→20:11)
[2018-05-30] MEDS: Acetaminophen 325 MG Tablet PO PRN (08:43)
[2018-05-30] MEDS: Senna/Docusate Sodium 8.6/50 MG Tablet PO SCH ×2 (08:43→20:11)
[2018-05-30] MEDS: Lidocaine 5% Patch T-DERMAL SCH (09:16)
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
[2018-05-30] MEDS: Vancomycin Inj 1,500 MG in Sodium Chlor 0.9% Inj 500 ML IV.SIG SCH (15:08)
--- NOTE | 2018-05-30 16:39 | P.PNCC ---
Subjective 24 Hour Review/Hospital Course: 05/27/18 Patient post R tib/fib fx. CT head consistent with R MCA ischemic stroke. CTA of the head reveals large right hemispheric stroke in the distribution of MCA and CT of the neck reveals carotid artery occlusion. Stroke alert initiated and appropriate services consulted. Transfer patient to ICU. Neurologic exam Patient is awake alert but somewhat disoriented able to speak Pupils equal reactive extraocular muscles are intact Motorically patient is weaker on the left side but 3/5 and 5/5 on the right side Sensory preserved All consistent with a large right MCA distribution ischemic stroke with a right internal carotid artery occlusion extending into the middle cerebral artery Patient was adequately resuscitated at the line placed started on IV heparin Neurology and medical critical care consults are greatly appreciated Discussed with Dr. Worthington and will take patient to interventional radiology suite for immediate extraction of the clot and possible stenting of the internal carotid artery depending on the findings post removal of the clot. This patient will probably have progression of neurologic symptoms and he will likely get worse before he improves Final neurologic status remains elusive 05/28/2018 Neurologically patient much improved this morning Moves all 4 extremities speaks with slight garble oriented and alert. Patient underwent yesterday successful thromboembolectomy and stenting of internal carotid artery in internal carotid and middle cerebral arteries. Patient obviously had underlying carotid disease based on the findings during the extraction and this was a fairly narrowed area without atherosclerotic disease this finally came to grinding halt and then performed clot about it Because of the rapid response of the interventional radiology and no having a patent carotid artery with a flow to the brain Hemodynamically stable Remains on IV heparin and will switch to Eliquis/Xarelto/Coumadin tomorrow Bilateral breath sounds good inspiratory function patient is clearing secretions easily Renal function preserved Doing very well at this time 05/29/2018 Neurologic exam reveals patient to be very weak on the left side and this is worse from yesterday 2/5 motion of the left leg and left arm Patient is noted ignoring his left side CT scan reveals evolving right hemispheric infarct Speech slightly slurry but otherwise okay so her history on this patient patient will require extensive physical and occupational therapy Medicine consult appreciated 05/30/2018 Neurologically patient is somewhat improved He is awake alert and oriented slightly slurring speech Not ignoring the left side Moves shoulder well and arm slightly better than yesterday Bilateral good breath sounds good pulmonary function Abdomen soft hypoactive bowel sounds and diet is tolerated well Renal function well preserved Hematologically there is some concerned about permanently low hemoglobin. Patient received 2 units PRBC for hemoglobin of 7.5 and this barely moved the numbers, raising concern about some source of internal bleeding CT of abdomen and pelvis ordered although patient is asymptomatic at this time Transfer to floor today Patient currently on heparin IV and will switch to Eliquis or some other factor X a inhibitor once the abdomen CT performed and we are sure there is no occult bleeding Objective Vital Signs / I&O: Vital Signs 05/29/18 16:40 05/29/18 17:00 05/29/18 17:37 Temperature Pulse Rate 115 H 115 H 118 H Respiratory Rate 20 20 18 Blood Pressure 134/68 Pulse Oximetry 05/29/18 17:40 05/29/18 17:45 05/29/18 17:46 Temperature Pulse Rate 113 H 118 H Respiratory Rate 20 18 18 Blood Pressure 180/72 H 136/65 Pulse Oximetry 05/29/18 18:00 05/29/18 19:06 05/29/18 20:00 Temperature Pulse Rate 125 H 117 H 115 H Respiratory Rate 18 20 Blood Pressure 141/69 H Pulse Oximetry 95 94 L 05/29/18 20:41 05/29/18 21:00 05/29/18 21:04 Temperature Pulse Rate 111 H 107 H 107 H Respiratory Rate 24 58 H 42 H Blood Pressure 158/73 H Pulse Oximetry 93 L 05/29/18 21:40 05/29/18 22:00 05/29/18 23:00 Temperature Pulse Rate 113 H 111 H 114 H Respiratory Rate 60 H 35 H 18 Blood Pressure 147/74 H 141/69 H Pulse Oximetry 05/30/18 00:00 05/30/18 01:00 05/30/18 02:00 Temperature 99.7 F H Pulse Rate 109 H 110 H 109 H Respiratory Rate 16 16 16 Blood Pressure 132/71 132/66 Pulse Oximetry 94 L 05/30/18 03:00 05/30/18 04:00 05/30/18 04:10 Temperature Pulse Rate 111 H 115 H 111 H Respiratory Rate 18 62 H 24 Blood Pressure 144/76 H Pulse Oximetry 05/30/18 05:00 05/30/18 06:00 05/30/18 07:00 Temperature Pulse Rate 117 H 108 H 102 H Respiratory Rate 71 H 28 H 61 H Blood Pressure 133/64 Pulse Oximetry 05/30/18 08:00 05/30/18 09:00 05/30/18 10:00 Temperature 98.6 F Pulse Rate 100 H 105 H 103 H Respiratory Rate 61 H 30 H 19 Blood Pressure 126/60 129/65 Pulse Oximetry 98 05/30/18 11:00 05/30/18 11:15 05/30/18 12:29 Temperature 98.4 F Pulse Rate 107 H 109 H 98 H Respiratory Rate 29 H 17 Blood Pressure 136/61 134/65 Pulse Oximetry 98 05/30/18 12:56 05/30/18 13:27 05/30/18 16:22 Temperature 98.2 F 98.2 F 97.7 F Pulse Rate 102 H 99 H 99 H Respiratory Rate 24 21 25 H Blood Pressure 134/65 134/65 131/60 Pulse Oximetry 98 98 94 L Intake & Output 05/29/18 05/30/18 05/30/18 18:59 06:59 18:59 Intake Total 700 / 700 523 / 523 900 / 900 Output Total 1855 / 1855 700 / 700 Balance -1155 / -1155 -177 / -177 900 / 900 Weight 108.1 kg Intake: IV 350 / 350 303 / 303 100 / 100 Heparin/D5W 25,000 U/250 mL 25, 250 / 250 103 / 103 000 unit In 250 ml @ Per Protocol IV.CONT TITRATE PRN Rx #:[id number] Maxipime Inj 2,000 MG In NS Inj 100 / 100 200 / 200 100 / 100 100 ML @ 200 mls/hr IV.SIG Q8H [facility] Rx#:[id number] Oral 350 / 350 220 / 220 Intake (Blood Product) Amt 800 / 800 Rbc As-3 Leukoreduced Unit 400 / 400 [id number] Rbc As-3 Leukoreduced Unit 400 / 400 [id number] Output: Urine Amount (Catheter) 1850 / 1850 700 / 700 Indwelling Urethral Catheter 1850 / 1850 Straight 700 / 700 Wound Vac Amount 5 / 5 Right Leg 5 / 5 Other: Mode Setting Right Leg Continuous Continuous Date of Last Bowel Movement 05/29/18 05/29/18 05/29/18 # Bowel Movements 1 Result Diagrams: 05/30/18 04:30 05/30/18 04:30 Imaging: Impressions Head MRI 05/29/18 00:00 CONCLUSION: 1. Large acute infarct involving the right middle cerebral artery distribution which involves a large portion of the right temporal and parietal lobes. There is approximately 6 mm of subfalcine herniation to the left. Disinhibition Score: 17.50 Aggression Score: 14.00 Lability Score: 14.00 Agitated Behavior Total Score: 16 Assessment and Plan Attestation: Critical care 34 minutes
[2018-05-30 18:17] LABS: Baso # (Auto) 0.2 th/mm3 (0.0-0.2); Baso % (Auto) 0.8 % (0.0-2.0); Eos # (Auto) 0.4 th/mm3 (0.0-0.4); Eos % (Auto) 1.8 % (0.0-4.0); Hematocrit 25.6 % (39.0-51.0); Hemoglobin 8.8 gm/dL (13.0-17.0); Lymph # (Auto) 3.5 th/mm3 (1.0-4.8); Lymph % (Auto) 17.7 % (9.0-44.0); Mean Corpuscular HGB Conc 34.5 % (32.0-36.0); Mean Platelet Volume 8.1 fL (7.0-11.0); Mono # (Auto) 2.2 th/mm3 (0.0-0.9); Neut # (Auto) 13.7 th/mm3 (1.8-7.7); Neut % (Auto) 68.7 % (16.0-70.0); Platelet Count 144 th/mm3 (150-450); Red Blood Count 2.95 mil/mm3 (4.50-5.90); Red Cell Distribution Width 15.4 % (11.6-17.2); White Blood Count 19.9 th/mm3 (4.0-11.0)
[2018-05-30] MEDS: Gabapentin 300 MG Capsule PO SCH (20:11)
[2018-05-30] MEDS: Sod Chloride 0.9% Inj 1,000 ML IV.SIG SCH ×2 (20:12)
[2018-05-30 21:33] LABS: Lymphocytes 18 % (9-44); Metamyelocytes 4 % (0-1); Monocytes 17 % (0-8); Tallied Nucleated RBC 10 (0-0)
[2018-05-30 21:53] LABS: Platelet Estimate Normal (Normal)
[2018-05-31] MEDS: Vancomycin Inj 1,500 MG in Sodium Chlor 0.9% Inj 500 ML IV.SIG SCH ×2 (02:55→17:31)
[2018-05-31 04:52] LABS: Baso # (Auto) 0.1 th/mm3 (0.0-0.2); Baso % (Auto) 0.6 % (0.0-2.0); Eos # (Auto) 0.5 th/mm3 (0.0-0.4); Eos % (Auto) 2.7 % (0.0-4.0); Hematocrit 25.4 % (39.0-51.0); Hemoglobin 8.7 gm/dL (13.0-17.0); Lymph # (Auto) 3.6 th/mm3 (1.0-4.8); Lymph % (Auto) 17.9 % (9.0-44.0); Mean Corpuscular HGB Conc 34.1 % (32.0-36.0); Mean Corpuscular Hemoglobin 30.4 pg (27.0-34.0); Mean Corpuscular Volume 89.1 fL (80.0-100.0); Mean Platelet Volume 8.5 fL (7.0-11.0); Mono % (Auto) 9.8 % (0.0-8.0); Platelet Count 162 th/mm3 (150-450); Red Blood Count 2.85 mil/mm3 (4.50-5.90); Red Cell Distribution Width 15.7 % (11.6-17.2); White Blood Count 20.2 th/mm3 (4.0-11.0)
[2018-05-31 05:10] LABS: Anion Gap 7 meq/L (5-15); Aspartate Aminotransferase 78 U/L (15-37); Blood Urea Nitrogen 19 mg/dL (7-18); Calcium 7.7 mg/dL (8.5-10.1); Carbon Dioxide 23.3 meq/L (21.0-32.0); Chloride 110 meq/L (98-107); Glomerular Filtration Rate Greater Than 89 mL/min (>89); Glucose,Random 101 mg/dL (74-106); Potassium 4.2 meq/L (3.5-5.1); Sodium 140 meq/L (136-145)
[2018-05-31 05:12] LABS: Alanine Aminotransferase 50 U/L (12-78)
[2018-05-31 05:13] LABS: Alkaline Phosphatase 38 U/L (45-117); Total Protein 6.1 g/dL (6.4-8.2)
[2018-05-31 05:52] LABS: Lymphocytes 9 % (9-44); Metamyelocytes 3 % (0-1); Monocytes 9 % (0-8); Myelocytes 2 % (0-0); Platelet Estimate Normal (Normal); Platelet Morphology Normal (Normal); Tallied Nucleated RBC 8 (0-0)
[2018-05-31 05:53] LABS: Dimorphic RBC Present
[2018-05-31 05:55] LABS: Spherocytes 1+
[2018-05-31] MEDS: metroNIDAZOLE 500 MG Tablet PO SCH ×3 (06:06→21:56)
[2018-05-31] MEDS: Chlorhexidine Gluconate 2% 1 Pack (2 Cloths) TOPICAL SCH (06:06)
[2018-05-31] MEDS: Gabapentin 300 MG Capsule PO SCH ×3 (08:27→17:37)
[2018-05-31] MEDS: Senna/Docusate Sodium 8.6/50 MG Tablet PO SCH ×2 (08:28→21:56)
[2018-05-31] MEDS: Lidocaine 5% Patch T-DERMAL SCH (08:38)
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
--- NOTE | 2018-05-31 12:42 | CT ---
EXAM DATE: 05/31/2018 11:43 AM EST AGE/SEX: 47 years / Male INDICATIONS: Low hemoglobin, post trauma alert. CLINICAL DATA: This is the patient's initial encounter. Patient reports that signs and symptoms have been present for 1 day and indicates a pain score of 0/10. MEDICAL/SURGICAL HISTORY: Stroke. . Clot removed from carotid and brain ORAL CONTRAST: No oral contrast ingested. RADIATION DOSE: 9.09 CTDI (mGy) [place] [facility] [place]/26/[place]. . TECHNIQUE: Multiple contiguous axial images were obtained through the abdomen and pelvis following b olus infusion of 81 ml Omnipaque 350 (iohexol) nonionic water-soluble contrast as a single exam dos e. No oral contrast ingested. Using automated exposure control and adjustment of the mA and/or kV ac cording to patient size, radiation dose was kept as low as reasonably achievable to obtain optimal di agnostic quality images. DICOM format image data is available electronically for review and comparis on. FINDINGS: Lower Lungs: Small right pleural effusion and tiny left pleural effusion are noted. Bibasilar binh sive atelectasis is noted. A tiny right basilar pneumothorax is identified but not incompletely evalu ated on this examination. Multiple right rib fractures are visualized. Liver: Two low-density lesions are noted within the left lobe of the liver and are stable. There is n o dilation of the biliary tree. The gallbladder is filled with contrast material. Spleen: Homogeneous density without enlargement. Pancreas: Unremarkable without mass or calcification. Kidneys: Normal in size and shape. No evidence of mass or hydronephrosis. Adrenal Glands: Unremarkable. Aorta: The aorta and proximal iliac vessels are grossly unremarkable without aneurysmal dilation. Bowel/Mesentery: The bowel loops are grossly unremarkable. The cecum and sigmoid colon have a normal configuration. The appendix is normal. Abdominal Wall: Intact. Retroperitoneum: No evidence of adenopathy in the retrocrural, para-aortic, or deep pelvic regions. Bladder: Contours are smooth. Donohue catheter is noted within the nondistended urinary bladder. Reproductive Organs: No abnormal masses or calcifications seen. Inguinal: The inguinal region is unremarkable without evidence of adenopathy. Bony Structures: Degenerative changes and scoliosis of the thoracolumbar spine are noted. CONCLUSION: 1. Small right pleural effusion and tiny left pleural effusion are noted. 2. Bibasilar compressive atelectasis is noted. 3. Tiny right basilar pneumothorax is identified but not incompletely evaluated on this examination. 4. Multiple right rib fractures are visualized. 5. 2 tiny low-density lesions within the left lobe of the liver. 6. Degenerative changes and scoliosis of the thoracolumbar spine. Electronically signed by: Hoang Eddy MD Board Certified Radiologist 05/31/2018 12:06 PM EST
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
[2018-05-31] MEDS: Heparin Drip 25,000 UNIT/250 ML BAG IV.CONT PRN (13:50)
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
[2018-05-31] MEDS: Famotidine PF Inj 20 MG/2 ML Vial IV.PUSH SCH ×2 (17:23→21:56)
[2018-05-31] MEDS: Sod Chloride 0.9% Inj 1,000 ML IV.SIG SCH (23:18)
[2018-06-01] MEDS ORDERED: Pharmacy Ordered Lab Info OTHER ONE (02:45)
[2018-06-01] MEDS: Vancomycin Inj 1,500 MG in Sodium Chlor 0.9% Inj 500 ML IV.SIG SCH ×3 (02:48→21:32)
[2018-06-01 03:39] LABS: Hematocrit 25.3 % (39.0-51.0); Hemoglobin 8.7 gm/dL (13.0-17.0); Mean Corpuscular HGB Conc 34.1 % (32.0-36.0); Mean Corpuscular Hemoglobin 29.9 pg (27.0-34.0); Mean Corpuscular Volume 87.5 fL (80.0-100.0); Mean Platelet Volume 8.4 fL (7.0-11.0); Platelet Count 211 th/mm3 (150-450); Red Cell Distribution Width 15.4 % (11.6-17.2)
[2018-06-01 03:42] LABS: Anion Gap 6 meq/L (5-15); Blood Urea Nitrogen 16 mg/dL (7-18); Calcium 7.8 mg/dL (8.5-10.1); Carbon Dioxide 26.2 meq/L (21.0-32.0); Chloride 109 meq/L (98-107); Glomerular Filtration Rate Greater Than 89 mL/min (>89); Glucose,Random 116 mg/dL (74-106); Magnesium 2.4 mg/dL (1.5-2.5); Potassium 4.3 meq/L (3.5-5.1); Sodium 141 meq/L (136-145)
[2018-06-01 03:44] LABS: Vancomycin,Trough 8.3 mcg/mL (5.0-10.0)
[2018-06-01] MEDS: Heparin Drip 25,000 UNIT/250 ML BAG IV.CONT PRN (04:30)
[2018-06-01 04:37] LABS: Eosinophils 2 % (0-4); Lymphocytes 10 % (9-44); Metamyelocytes 3 % (0-1); Monocytes 6 % (0-8); Myelocytes 4 % (0-0); Platelet Estimate Normal (Normal); Platelet Morphology Normal (Normal); Tallied Nucleated RBC 15 (0-0)
[2018-06-01 04:38] LABS: Polychromasia 3.1 % (0.0-1.9)
[2018-06-01] MEDS: metroNIDAZOLE 500 MG Tablet PO SCH ×3 (05:49→21:33)
--- NOTE | 2018-06-01 08:31 | P.PNOP ---
Subjective Interval history: Resting comfortably in bed with family bedside Physical Exam Vital signs: Vital Signs 05/31/18 12:00 05/31/18 16:00 05/31/18 20:00 Temperature 98.2 F 99.4 F 98.9 F Pulse Rate 85 82 90 Respiratory Rate 16 17 18 Blood Pressure 133/66 150/76 H 132/79 Pulse Oximetry 99 99 97 05/31/18 20:29 05/31/18 23:19 05/31/18 23:55 Temperature 100.4 F H Pulse Rate 92 H Respiratory Rate 20 18 Blood Pressure 144/69 H Pulse Oximetry 96 96 06/01/18 02:48 06/01/18 04:00 06/01/18 04:03 Temperature 99.2 F Pulse Rate 85 Respiratory Rate 20 18 20 Blood Pressure 134/63 Pulse Oximetry 98 06/01/18 08:00 Temperature 98.3 F Pulse Rate 76 Respiratory Rate Blood Pressure 137/83 Pulse Oximetry 94 L Intake & Output 05/31/18 06/01/18 06/01/18 18:59 06:59 18:59 Intake Total 1070 / 1070 2080 / 2080 Output Total 2149 / 2149 1600 / 1600 Balance -1080 / -1080 480 / 480 Weight 100.6 kg Intake: IV 350 / 350 1480 / 1480 Heparin/D5W 25,000 U/250 mL 25, 250 / 250 250 / 250 000 unit In 250 ml @ Per Protocol IV.CONT TITRATE PRN Rx #:[id number] Maxipime Inj 2,000 MG In NS Inj 100 / 100 200 / 200 100 ML @ 200 mls/hr IV.SIG Q8H ISABEL Rx#:[id number] Vancomycin Inj 1,500 MG In NS 1030 / 1030 Inj 500 ML @ 250 mls/hr IV.SIG Q12H ISABEL Rx#:[id number] Oral 720 / 720 600 / 600 Output: Urine Amount (Catheter) 2149 / 2149 1600 / 1600 Indwelling Urethral Catheter 2149 750 / 750 Straight 850 / 850 Narrative: Right lower extremity: Clean dry dressings intact with splint in place. Good capillary refills distally. Denies sensation of toes. Week plantarflexion of toes. Left lower extremity: Clean dry dressings intact. Minimal sensation of the leg. No sensation of the tibia or foot. Active movement with weak dorsiflexion and plantarflexion. Good capillary refills and distal pulses - Urinary Catheter Management Indwelling Urethral Catheter Cath placed during this visit: yes, but has since been removed by the nurse Reason for continuing: Acute urinary retention Insertion date: 05/31/18 Insertion time: 04:30 Removal date: 05/29/18 Removal time: 21:00 Straight Cath placed during this visit: no Reason for continuing: Acute urinary retention Results - Labs CBC & Chem 7: 06/01/18 02:37 06/01/18 02:37 Laboratory Results - last 24 hr 05/31/18 06/01/18 06/01/18 08:12 02:37 02:37 WBC 22.0 H RBC 2.90 L Hgb 8.7 L Hct 25.3 L MCV 87.5 MCH 29.9 MCHC 34.1 RDW 15.4 Plt Count 211 D MPV 8.4 Prelim Diff (Auto) Manual diff required WBC Differential Manual diff final Seg Neuts % (Manual) 66 Band Neuts % (Manual) 7 H Lymphocytes % (Manual) 10 Monocytes % (Manual) 6 Eosinophils % (Manual) 2 Basophils % (Manual) 2 Metamyelocytes % (Man) 3 H Myelocytes % (Man) 4 H Abs Neuts (Manual) 17.6 H Nucleated RBCs/100 WBC 15 H Differential Comment . Platelet Estimate Normal Platelet Morphology Normal Polychromasia 3.1 H Keratocytes Occ H APTT 45.5 H Sodium 141 Potassium 4.3 Chloride 109 H Carbon Dioxide 26.2 Anion Gap 6 BUN 16 Creatinine 0.68 Estimated GFR Greater than 89 Random Glucose 116 H Calcium 7.8 L Magnesium 2.4 Vancomycin Trough 8.3 Microbiology 05/29/18 13:05 Blood - Peripheral Aerobic Blood Culture - Preliminary No growth in 2 days 05/29/18 13:05 Blood - Peripheral Anaerobic Blood Culture - Preliminary No growth in 2 days 05/29/18 13:18 Blood - Peripheral Aerobic Blood Culture - Preliminary No growth in 2 days 05/29/18 13:18 Blood - Peripheral Anaerobic Blood Culture - Preliminary No growth in 2 days 05/29/18 12:56 Catheterized Urine Urine Culture - Final No growth in 48 hours - Imaging Impressions Abdomen/Pelvis CT 05/31/18 00:00 CONCLUSION: 1. Small right pleural effusion and tiny left pleural effusion are noted. 2. Bibasilar compressive atelectasis is noted. 3. Tiny right basilar pneumothorax is identified but not incompletely evaluated on this examination. 4. Multiple right rib fractures are visualized. 5. 2 tiny low-density lesions within the left lobe of the liver. 6. Degenerative changes and scoliosis of the thoracolumbar spine. Assessment and Plan - Assessment and Plan 1) Right Open Tibia/Fibula Fxs and left thigh wound s/p I&D with IMN right tibia , ORIF right medial malleolus, ORIF right fibula, I&D wound closure left thigh - POD 6 -NWB right lower extremity -maintain splint -ortho surgeries complete at this time -begin daily dressing changes left thigh with xeroform/primapore -DVT prophylaxis with heparin drip -Medical management by ICU team -will follow up with Juan or GIULIANO in 2 weeks [facility] Prescription Drug Monitoring Database has been queried and verified prior to prescribing the controlled substance. Acute pain exception. This patient has normal, predicted, physiological, and time limited response to an adverse mechanical stimulus associated with surgery, trauma, or acute illness as described in my notes. There is a lack of alternative treatment options other than to include the prescribed narcotic treatment for this condition.
[2018-06-01] MEDS: Senna/Docusate Sodium 8.6/50 MG Tablet PO SCH ×2 (08:45→21:33)
[2018-06-01] MEDS: Gabapentin 300 MG Capsule PO SCH ×4 (08:45→18:47)
[2018-06-01] MEDS: Lidocaine 5% Patch T-DERMAL SCH (08:46)
[2018-06-01] MEDS: Sod Chloride 0.9% Inj 1,000 ML IV.SIG SCH ×2 (08:56→21:32)
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
[2018-06-01] MEDS: Famotidine PF Inj 20 MG/2 ML Vial IV.PUSH SCH ×2 (11:34→21:32)
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
[2018-06-02] MEDS: Acetaminophen 325 MG Tablet PO PRN (01:14)
[2018-06-02 06:07] LABS: Baso # (Auto) 0.2 th/mm3 (0.0-0.2); Baso % (Auto) 0.9 % (0.0-2.0); Eos # (Auto) 0.4 th/mm3 (0.0-0.4); Eos % (Auto) 2.3 % (0.0-4.0); Hematocrit 28.2 % (39.0-51.0); Hemoglobin 9.2 gm/dL (13.0-17.0); Lymph # (Auto) 2.9 th/mm3 (1.0-4.8); Lymph % (Auto) 15.3 % (9.0-44.0); Mean Corpuscular HGB Conc 32.8 % (32.0-36.0); Mean Corpuscular Hemoglobin 29.6 pg (27.0-34.0); Mean Corpuscular Volume 90.1 fL (80.0-100.0); Mean Platelet Volume 8.3 fL (7.0-11.0); Mono # (Auto) 2.3 th/mm3 (0.0-0.9); Neut # (Auto) 13.2 th/mm3 (1.8-7.7); Neut % (Auto) 69.5 % (16.0-70.0); Platelet Count 279 th/mm3 (150-450); Red Blood Count 3.13 mil/mm3 (4.50-5.90)
[2018-06-02] MEDS: Vancomycin Inj 1,500 MG in Sodium Chlor 0.9% Inj 500 ML IV.SIG SCH ×2 (06:10→14:44)
[2018-06-02] MEDS: metroNIDAZOLE 500 MG Tablet PO SCH ×3 (06:27→21:53)
[2018-06-02 07:23] LABS: Eosinophils 2 % (0-4); Lymphocytes 11 % (9-44); Metamyelocytes 5 % (0-1); Monocytes 7 % (0-8); Myelocytes 1 % (0-0); Platelet Estimate Normal (Normal); Platelet Morphology Normal (Normal); Tallied Nucleated RBC 6 (0-0)
[2018-06-02] MEDS ORDERED: Aspirin 325 MG Tablet PO SCH (09:00)
[2018-06-02] MEDS: Famotidine PF Inj 20 MG/2 ML Vial IV.PUSH SCH ×2 (09:19→21:53)
[2018-06-02] MEDS: Lidocaine 5% Patch T-DERMAL SCH (09:19)
[2018-06-02] MEDS: Senna/Docusate Sodium 8.6/50 MG Tablet PO SCH ×2 (09:20→21:55)
[2018-06-02] MEDS: Gabapentin 300 MG Capsule PO SCH ×3 (09:20→19:24)
[2018-06-02] MEDS ORDERED: Pharmacy Ordered Lab Info OTHER ONE (11:45)
[2018-06-02 12:37] LABS: Anion Gap 9 meq/L (5-15); Blood Urea Nitrogen 15 mg/dL (7-18); Calcium 8.1 mg/dL (8.5-10.1); Carbon Dioxide 22.4 meq/L (21.0-32.0); Chloride 107 meq/L (98-107); Glomerular Filtration Rate Greater Than 89 mL/min (>89); Glucose,Random 111 mg/dL (74-106); Magnesium 2.4 mg/dL (1.5-2.5); Potassium 4.4 meq/L (3.5-5.1); Sodium 138 meq/L (136-145)
[2018-06-02 12:39] LABS: Vancomycin,Trough 25.7 mcg/mL (5.0-10.0)
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
[2018-06-02] MEDS: Sod Chloride 0.9% Inj 1,000 ML IV.SIG SCH (21:54)
[2018-06-03 02:33] LABS: Bilirubin,Urine Negative (Negative); Clarity,Urine Clear (Clear); Color,Urine Yellow (Yellw/Straw); Glucose,Urine (UA) Negative (Negative); Hyaline Casts,Urine 1 /lpf (0-3); Leukocyte Esterase,Urine Negative (Negative); Mucus,Urine Few /lpf (Occasional); Nitrite,Urine Negative (Negative); Specific Gravity,Urine 1.021 (1.002-1.035)
[2018-06-03] MEDS: metroNIDAZOLE 500 MG Tablet PO SCH ×3 (06:05→22:00)
[2018-06-03 08:17] LABS: Glomerular Filtration Rate Greater Than 89 mL/min (>89)
[2018-06-03 08:18] LABS: Vancomycin,Random 2.5 Comment
[2018-06-03] MEDS: Senna/Docusate Sodium 8.6/50 MG Tablet PO SCH ×2 (09:48→20:51)
[2018-06-03] MEDS: Gabapentin 300 MG Capsule PO SCH ×3 (09:48→18:03)
[2018-06-03] MEDS: Famotidine PF Inj 20 MG/2 ML Vial IV.PUSH SCH ×2 (09:49→20:49)
[2018-06-03] MEDS: Lidocaine 5% Patch T-DERMAL SCH (09:54)
--- NOTE | 2018-06-03 10:21 | P.PNNEU ---
Subjective Active Medications: Active Medications Acetaminophen (Tylenol) 650 mg PO Q6H PRN PRN Reason: Temperature > 102F, Pain 1-10 Last Admin: 06/02/18 01:14 Dose: 650 mg Acetaminophen (Tylenol Supp) 650 mg RECTAL Q6H PRN PRN Reason: Pain/fever > 101 Hydrocodone Bitart/Acetaminophen ([place] 10/325) 1 tab PO Q4H PRN PRN Reason: PAIN 1-8 Last Admin: 06/03/18 01:56 Dose: 1 tab Al Hydroxide/Mg Hydroxide (Milk Of Jose Lilucrecia) 30 ml PO BID [facility] Last Admin: 06/03/18 09:53 Dose: Not Given Albuterol (Duoneb Neb (Prn)) 1 ampul NEB Q2HR NEB PRN PRN Reason: WHEEZING Apixaban (Eliquis) 5 mg PO BID [facility] Last Admin: 06/03/18 09:48 Dose: 5 mg Aspirin (Aspirin Chew) 81 mg PO DAILY [facility] Last Admin: 06/03/18 09:48 Dose: 81 mg Bacitracin (Baciguent Oint) 1 applicatio TOPICAL BID [facility] Last Admin: 06/02/18 21:54 Dose: 1 applicatio Diphenhydramine HCl (Benadryl) 25 mg PO Q6H PRN PRN Reason: ITCHING Last Admin: 06/02/18 09:19 Dose: 25 mg Enalaprilat (Vasotec Inj) 1.25 mg IV.PUSH Q8H PRN PRN Reason: SBP>180, DBP>95 Famotidine (Pepcid Pf Inj) 20 mg IV.PUSH Q12HR [facility] Last Admin: 06/03/18 09:49 Dose: 20 mg Gabapentin (Neurontin) 300 mg PO TID [facility] Last Admin: 06/03/18 09:48 Dose: 300 mg Sodium Chloride (Ns Inj) 1,000 mls @ 40 mls/hr IV.SIG .Q24H [facility] Last Admin: 06/02/18 21:54 Dose: Not Given Cefepime HCl 2,000 mg/ Sodium (Chloride) 100 mls @ 200 mls/hr IV.SIG Q8H [facility] Last Admin: 06/03/18 06:03 Dose: Not Given Vancomycin HCl 1,500 mg/ (Sodium Chloride) 515 mls @ 250 mls/hr IV.SIG Q8H [facility] Last Admin: 06/02/18 14:44 Dose: Not Given Lidocaine HCl (Lidoderm 5% Patch.12 Hr) 1 patch T-DERMAL DAILY [facility] Last Admin: 06/03/18 09:54 Dose: 1 patch Metronidazole (Flagyl) 500 mg PO Q8HR [facility] Last Admin: 06/03/18 06:05 Dose: 500 mg Ondansetron HCl (Zofran Inj) 4 mg IV.PUSH Q6H PRN PRN Reason: NAUSEA OR VOMITING Last Admin: 06/03/18 01:47 Dose: 4 mg Ondansetron HCl (Zofran Odt) 4 mg PO Q6H PRN PRN Reason: NAUSEA OR VOMITING Pharmacy Profile Note (Vancomycin Consult Pharmacy) 1 each OTHER UNSCH PRN PRN Reason: Pharmacy to dose Senna/Docusate Sodium (Sravani-Colace) 1 tab PO BID [facility] Last Admin: 06/03/18 09:48 Dose: 1 tab Sennosides (Senokot) 17.2 mg PO BID PRN PRN Reason: Moderate Constipation Last Admin: 05/31/18 08:28 Dose: 17.2 mg Sodium Chloride (Ns Flush) 2 ml IV.FLUSH UNSCH PRN PRN Reason: FLUSH AFTER USING IV ACCESS Allergies/Adverse Reactions: Allergies Allergy/AdvReac Type Severity Reaction Status Date / Time No Known Allergies Allergy Verified 05/26/18 06:46 Physical Exam Vital signs: Vital Signs 06/02/18 11:59 06/02/18 16:00 06/02/18 20:00 Temperature 98.7 F 98.1 F 99.0 F Pulse Rate 77 98 H 109 H Respiratory Rate 19 18 17 Blood Pressure 136/63 142/73 H 153/80 H Pulse Oximetry 98 97 98 06/02/18 21:53 06/03/18 00:00 06/03/18 01:33 Temperature 98.6 F Pulse Rate 88 Respiratory Rate 18 17 22 Blood Pressure 127/63 Pulse Oximetry 96 06/03/18 01:56 06/03/18 06:03 06/03/18 08:00 Temperature 98.1 F Pulse Rate 89 Respiratory Rate 20 20 18 Blood Pressure 140/66 Pulse Oximetry 96 06/03/18 09:35 Temperature Pulse Rate Respiratory Rate Blood Pressure Pulse Oximetry 96 Intake & Output 06/02/18 06/03/18 06/03/18 18:59 06:59 18:59 Intake Total 615 / 615 560 / 560 Output Total 400 / 400 Balance 615 / 615 160 / 160 Weight 95.5 kg Intake: IV 615 / 615 200 / 200 Maxipime Inj 2,000 MG In NS Inj 100 / 100 200 / 200 100 ML @ 200 mls/hr IV.SIG Q8H [facility] Rx#:[id number] Vancomycin Inj 1,500 MG In NS 515 / 515 Inj 500 ML @ 250 mls/hr IV.SIG Q8H [facility] Rx#:[id number] Oral 360 / 360 Output: Urine 400 / 400 Other: Date of Last Bowel Movement 05/29/18 06/03/18 # Bowel Movements 0 Narrative: awwake left neglect can move lue fairly well - Urinary Catheter Management Indwelling Urethral Catheter Cath placed during this visit: yes, but has since been removed by the nurse Reason for continuing: Continue criteria not met Insertion date: 05/31/18 Insertion time: 04:30 Removal date: 06/02/18 Removal time: 23:00 Straight Cath placed during this visit: yes, but has since been removed by the nurse Reason for continuing: Continue criteria not met Removal date: 06/02/18 Removal time: 23:00 Objective Laboratory Results - last 24 hr 06/02/18 06/03/18 06/03/18 11:28 01:00 06:59 Sodium 138 Potassium 4.4 Chloride 107 Carbon Dioxide 22.4 Anion Gap 9 BUN 15 Creatinine 0.74 0.70 Estimated GFR Greater than 89 Greater than 89 Random Glucose 111 H Calcium 8.1 L Magnesium 2.4 Urine Color Yellow Urine Clarity Clear Urine pH 5.0 Ur Specific [place] 1.021 Urine Protein Negative Urine Glucose (UA) Negative Urine Ketones 20 Urine Occult Blood Moderate H Urine Nitrate Negative Urine Bilirubin Negative Urine Urobilinogen Less than 2 Ur Leukocyte Esterase Negative Urine RBC 11 H Urine WBC 3 Hyaline Casts 1 Granular Casts 3 Urine Mucus Few H Micro UA Comment Culture not ind Ur Microscopic Review Not Reportable Urine Culture Comments Culture not ind Vancomycin Trough 25.7 H Random Vancomycin 2.5 Microbiology 05/29/18 13:05 Aerobic Blood Culture - Preliminary Blood - Peripheral No growth in 4 days Anaerobic Blood Culture - Preliminary No growth in 4 days 05/29/18 13:18 Aerobic Blood Culture - Preliminary Blood - Peripheral No growth in 4 days Anaerobic Blood Culture - Preliminary No growth in 4 days Review/Management - Review/Management Plan: imp on eliquis after carotid dissection check ct make sure no bleeding ow doing well and if ct neg could go to rehab traumatic dissection
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
--- NOTE | 2018-06-03 11:09 | XR ---
EXAM DATE: 06/03/2018 10:54 AM EST AGE/SEX: 47 years / Male INDICATIONS: Shortness of breath. CLINICAL DATA: This is the patient's initial encounter. Patient reports that signs and symptoms have been present for 1 day and indicates a pain score of Nonresponsive. MEDICAL/SURGICAL HISTORY: Stroke. . Clot removal, brain and carotid. COMPARISON: C, CHEST 1V SINGLE AP, 05/29/2018. . FINDINGS: AP portable semiupright view of the chest demonstrates stable appearance of hypoinflation. Heart size is grossly normal given the degree of hypoinflation. Lungs are grossly clear given the degree of hyp oinflation. There has been removal of a left-sided central line. Imaged portion of the abdomen demons trates air dilated large bowel. CONCLUSION: Hypoinflation of the lungs. No acute abnormality seen. Electronically signed by: Rhea Bassett MD Board Certified Radiologist 06/03/2018 11:08 AM EST
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
[2018-06-03 13:54] LABS: Bilirubin,Urine Negative (Negative); Clarity,Urine Clear (Clear); Color,Urine Yellow (Yellw/Straw); Glucose,Urine (UA) Negative (Negative); Hyaline Casts,Urine 1 /lpf (0-3); Leukocyte Esterase,Urine Negative (Negative); Mucus,Urine Few /lpf (Occasional); Nitrite,Urine Negative (Negative); Specific Gravity,Urine 1.019 (1.002-1.035)
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
[2018-06-03] MEDS: Vancomycin Inj 2,000 MG in Sodium Chlor 0.9% Inj 500 ML IV.SIG SCH ×2 (15:45→23:54)
--- NOTE | 2018-06-03 20:35 | CT ---
EXAM DATE: 06/03/2018 8:19 PM EST AGE/SEX: 47 years / Male INDICATIONS: Intracerebral hemorrage. CLINICAL DATA: This is the patient's initial encounter. Patient reports that signs and symptoms have been present for 1 day and indicates a pain score of 5/10. MEDICAL/SURGICAL HISTORY: None. None. RADIATION DOSE: 41.29 CTDI (mGy) COMPARISON: [facility] [place], MR HEAD W/O CONTRAST, 05/29/2018. . TECHNIQUE: CT of the head without contrast. Using automated exposure control and adjustment of the mA and/or kV according to patient size, radiation dose was kept as low as reasonably achievable to ob tain optimal diagnostic quality images. DICOM format image data is available electronically for revi ew and comparison. FINDINGS: Cerebrum: Loss of soriano-white matter differentiation and diffuse hypodensity involving the right temp oral and parietal mid to high convexities as well as the right basal ganglia consistent with subacute infarction. No definitive evidence for intercurrent acute hemorrhage. Stable 4 mm right to left subf alcine shift with associated mass effect on the right lateral ventricle. Posterior Fossa: The cerebellum and brainstem are intact. The 4th ventricle is midline. The cerebe llopontine angle is unremarkable. Extracranial: The visualized portion of the orbits is intact. Partially imaged distal ICA stent. Skull: The calvaria is intact. No evidence of skull fracture. CONCLUSION: 1. Evolving large right MCA territory infarct without intercurrent acute hemorrhage. 2. Stable mass effect with 4 mm right to left subfalcine shift. . . Electronically signed by: Navneet Hutchins MD Board Certified Radiologist 06/03/2018 8:34 PM EST
[2018-06-03] MEDS: Acetaminophen 325 MG Tablet PO PRN (20:48)
[2018-06-03] MEDS: Sod Chloride 0.9% Inj 1,000 ML IV.SIG SCH (20:50)
[2018-06-04 00:25] VITALS: O2SAT 97
[2018-06-04] MEDS: metroNIDAZOLE 500 MG Tablet PO SCH (06:27)
--- NOTE | 2018-06-04 09:35 | P.PNNEU ---
Subjective Active Medications: Active Medications Acetaminophen (Tylenol) 650 mg PO Q6H PRN PRN Reason: Temperature > 102F, Pain 1-10 Last Admin: 06/03/18 20:48 Dose: 650 mg Acetaminophen (Tylenol Supp) 650 mg RECTAL Q6H PRN PRN Reason: Pain/fever > 101 Hydrocodone Bitart/Acetaminophen ([place] 10/325) 1 tab PO Q4H PRN PRN Reason: PAIN 1-8 Last Admin: 06/04/18 03:14 Dose: 1 tab Al Hydroxide/Mg Hydroxide (Milk Of Jose Lilucrecia) 30 ml PO BID [facility] Last Admin: 06/03/18 20:50 Dose: Not Given Albuterol (Duoneb Neb (Prn)) 1 ampul NEB Q2HR NEB PRN PRN Reason: WHEEZING Apixaban (Eliquis) 5 mg PO BID [facility] Last Admin: 06/03/18 20:48 Dose: 5 mg Aspirin (Aspirin Chew) 81 mg PO DAILY [facility] Last Admin: 06/03/18 09:48 Dose: 81 mg Bacitracin (Baciguent Oint) 1 applicatio TOPICAL BID [facility] Last Admin: 06/03/18 20:50 Dose: Not Given Diphenhydramine HCl (Benadryl) 25 mg PO Q6H PRN PRN Reason: ITCHING Last Admin: 06/02/18 09:19 Dose: 25 mg Enalaprilat (Vasotec Inj) 1.25 mg IV.PUSH Q8H PRN PRN Reason: SBP>180, DBP>95 Famotidine (Pepcid Pf Inj) 20 mg IV.PUSH Q12HR [facility] Last Admin: 06/03/18 20:49 Dose: 20 mg Gabapentin (Neurontin) 300 mg PO TID [facility] Last Admin: 06/03/18 18:03 Dose: 300 mg Sodium Chloride (Ns Inj) 1,000 mls @ 40 mls/hr IV.SIG .Q24H [facility] Last Admin: 06/03/18 20:50 Dose: Not Given Cefepime HCl 2,000 mg/ Sodium (Chloride) 100 mls @ 200 mls/hr IV.SIG Q8H [facility] Last Infusion: 06/04/18 03:40 Dose: Infused Vancomycin HCl 2,000 mg/ (Sodium Chloride) 520 mls @ 250 mls/hr IV.SIG Q12H [facility] Last Infusion: 06/04/18 01:59 Dose: Infused Lidocaine HCl (Lidoderm 5% Patch.12 Hr) 1 patch T-DERMAL DAILY [facility] Last Admin: 06/03/18 09:54 Dose: 1 patch Metronidazole (Flagyl) 500 mg PO Q8HR [facility] Last Admin: 06/04/18 06:27 Dose: 500 mg Miscellaneous Information ([facility] Ordered Lab Info) 0 each OTHER ONCE ONE Stop: 06/05/18 11:46 Ondansetron HCl (Zofran Inj) 4 mg IV.PUSH Q6H PRN PRN Reason: NAUSEA OR VOMITING Last Admin: 06/03/18 01:47 Dose: 4 mg Ondansetron HCl (Zofran Odt) 4 mg PO Q6H PRN PRN Reason: NAUSEA OR VOMITING Pharmacy Profile Note (Vancomycin Consult Pharmacy) 1 each OTHER UNSCH PRN PRN Reason: Pharmacy to dose Senna/Docusate Sodium (Sravani-Colace) 1 tab PO BID [facility] Last Admin: 06/03/18 20:51 Dose: Not Given Sennosides (Senokot) 17.2 mg PO BID PRN PRN Reason: Moderate Constipation Last Admin: 05/31/18 08:28 Dose: 17.2 mg Sodium Chloride (Ns Flush) 2 ml IV.FLUSH UNSCH PRN PRN Reason: FLUSH AFTER USING IV ACCESS Tamsulosin HCl (Flomax) 0.4 mg PO DAILY [facility] Last Admin: 06/03/18 13:10 Dose: 0.4 mg Allergies/Adverse Reactions: Allergies Allergy/AdvReac Type Severity Reaction Status Date / Time No Known Allergies Allergy Verified 05/26/18 06:46 Physical Exam Vital signs: Vital Signs 06/03/18 12:00 06/03/18 16:00 06/03/18 20:00 Temperature 100.1 F H 97.6 F 98.0 F Pulse Rate 102 H 97 H 98 H Respiratory Rate 17 18 20 Blood Pressure 154/74 H 137/72 131/69 Pulse Oximetry 100 96 97 06/03/18 20:43 06/03/18 21:18 06/04/18 00:00 Temperature 98.1 F Pulse Rate 89 Respiratory Rate 20 20 Blood Pressure 149/74 H Pulse Oximetry 96 97 06/04/18 03:14 06/04/18 03:44 Temperature Pulse Rate Respiratory Rate 20 20 Blood Pressure Pulse Oximetry Intake & Output 06/03/18 06/04/18 06/04/18 18:59 06:59 18:59 Intake Total 620 / 620 720 / 720 Output Total 1000 / 1000 1200 / 1200 Balance -380 / -380 -480 / -480 Weight 92.4 kg Intake: IV 620 / 620 720 / 720 Maxipime Inj 2,000 MG In NS Inj 100 / 100 200 / 200 100 ML @ 200 mls/hr IV.SIG Q8H [facility] Rx#:[id number] Vancomycin Inj 2,000 MG In NS 520 / 520 520 / 520 Inj 500 ML @ 250 mls/hr IV.SIG Q12H [facility] Rx#:[id number] Output: Urine Amount (Catheter) 1000 / 1000 1200 / 1200 Indwelling Urethral Catheter 1000 / 1000 1200 / 1200 Other: Date of Last Bowel Movement 06/02/18 06/03/18 Narrative: awake alert moving lue well - Urinary Catheter Management Indwelling Urethral Catheter Cath placed during this visit: yes, but has since been removed by the nurse Reason for continuing: Acute urinary retention Insertion date: 05/31/18 Insertion time: 04:30 Removal date: 06/02/18 Removal time: 23:00 Straight Cath placed during this visit: yes, but has since been removed by the nurse Reason for continuing: Continue criteria not met Removal date: 06/02/18 Removal time: 23:00 Objective Laboratory Results - last 24 hr 06/03/18 13:07 Urine Color Yellow Urine Clarity Clear Urine pH 5.0 Ur Specific [place] 1.019 Urine Protein Negative Urine Glucose (UA) Negative Urine Ketones Trace H Urine Occult Blood Moderate H Urine Nitrate Negative Urine Bilirubin Negative Urine Urobilinogen Less than 2 Ur Leukocyte Esterase Negative Urine RBC 4 H Urine WBC 2 Hyaline Casts 1 Urine Mucus Few H Micro UA Comment Cath Ur Microscopic Review Not Reportable Microbiology 05/29/18 13:05 Aerobic Blood Culture - Final Blood - Peripheral No growth in 5 days Anaerobic Blood Culture - Final No growth in 5 days 05/29/18 13:18 Aerobic Blood Culture - Final Blood - Peripheral No growth in 5 days Anaerobic Blood Culture - Final No growth in 5 days Review/Management - Review/Management Plan: imp on eliquis after carotid dissection check ct make sure no bleeding ow doing well and if ct neg could go to rehab traumatic dissection 06/04/[address] no bleed still edema will fu office 2 months
[2018-06-04 10:53] VITALS: BP 128/62; PULSE 79; RESP 16; TEMP 98.3
[2018-06-04] MEDS: Senna/Docusate Sodium 8.6/50 MG Tablet PO SCH (11:19)
[2018-06-04] MEDS: Gabapentin 300 MG Capsule PO SCH (11:19)
[2018-06-04] MEDS: Famotidine PF Inj 20 MG/2 ML Vial IV.PUSH SCH (11:19)
[2018-06-04] MEDS: Lidocaine 5% Patch T-DERMAL SCH (11:22)
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
[2018-06-05] MEDS ORDERED: Pharmacy Ordered Lab Info OTHER ONE (11:45)
== END 2018-06-04 12:44 | DRG 957 ==
LOC: NEPI 02:31 → EDBD 03:23 → NEDA 03:23 → N03 03:49 → N06 11:39 → N03 05-27 14:29 → N07 05-30 21:13
PROVIDERS: ADMIT Surgery; ATTEND Surgery
DX: Y99.0 Civilian activity done for income or pay; G81.94 Hemiplegia, unspecified affecting left nondominant side; S27.321A Contusion of lung, unilateral, initial encounter; R47.01 Aphasia; V44.5XXA Car driver injured in collision with heavy transport vehicle or bus in traffic accident, initial encounter; I10 Essential (primary) hypertension; I63.411 Cerebral infarction due to embolism of right middle cerebral artery; J98.11 Atelectasis; Z79.01 Long term (current) use of anticoagulants; D62 Acute posthemorrhagic anemia; S82.841A Displaced bimalleolar fracture of right lower leg, initial encounter for closed fracture; I63.131 Cerebral infarction due to embolism of right carotid artery; S22.41XA Multiple fractures of ribs, right side, initial encounter for closed fracture; S71.112A Laceration without foreign body, left thigh, initial encounter; R47.1 Dysarthria and anarthria; S60.511A Abrasion of right hand, initial encounter; J18.9 Pneumonia, unspecified organism; R13.10 Dysphagia, unspecified; S92.101A Unspecified fracture of right talus, initial encounter for closed fracture; S82.843A Displaced bimalleolar fracture of unspecified lower leg, initial encounter for closed fracture; S81.022A Laceration with foreign body, left knee, initial encounter; Y92.410 Unspecified street and highway as the place of occurrence of the external cause; Y93.89 Activity, other specified; S22.21XA Fracture of manubrium, initial encounter for closed fracture; I45.10 Unspecified right bundle-branch block; N17.9 Acute kidney failure, unspecified; S01.81XA Laceration without foreign body of other part of head, initial encounter; S82.401B Unspecified fracture of shaft of right fibula, initial encounter for open fracture type I or II; I77.71 Dissection of carotid artery; G93.5 Compression of brain; Z79.82 Long term (current) use of aspirin; Z79.899 Other long term (current) drug therapy; J96.01 Acute respiratory failure with hypoxia; M62.82 Rhabdomyolysis; S60.512A Abrasion of left hand, initial encounter; R29.810 Facial weakness; S82.201B Unspecified fracture of shaft of right tibia, initial encounter for open fracture type I or II; G93.49 Other encephalopathy
CPT/HCPCS: 0042T; 29505; 36430; 36556; 36600; 37215; 51798; 61645; 70450; 70496; 70498; 70551; 71010; 71045; 71260; 72125; 72170; 73560; 73590; 73700; 74177; 76000; 76497; 76499; 76775; 76937; 80048; 80053; 80202; 81001; 82040; 82435; 82550; 82552; 82565; 82805; 82947; 82948; 82962; 83735; 84100; 84132; 84295; 84484; 84520; 85025; 85384; 85610; 85730; 86850; 86900; 86901; 86923; 87040; 87086; 87641; 90471; 90715; 90774; 90775; 90784; 92526; 92610; 93005; 93306; 94150; 94640; 94665; 94770; 96125; 96374; 96375; 97110; 97112; 97162; 97167; 97530; 97535; 99285; 99291; A0431; A0436; A4646; C1713; C1760; C1769; C1776; C1876; C1884; C1887; C1893; C1894; C8952; C9113; G0195; G0390; J0330; J0690; J0692; J1100; J1170; J1580; J1644; J1650; J1885; J2270; J2370; J2405; J2704; J2710; J2997; J3010; J3370; J7030; J7040; J7120; P9016; Q9949; Q9967